=== PATIENT | female | born 1990 | race Caucasian/White ===

== ENCOUNTER → 2022-06-04 11:43 | Outpatient (BNVA) | payer BC, SELFPAY | PROVIDERS: Visit Provider Nurse Practitioner Family | DX: J02.9 Acute pharyngitis, unspecified (principal) | CPT/HCPCS: 87071; 87880 ==

== ENCOUNTER → 2022-07-29 10:51 | Outpatient (BNVA) | payer BC, SELFPAY | PROVIDERS: PCP Nurse Practitioner Family; Visit Provider Nurse Practitioner Family | DX: S99.912A Unspecified injury of left ankle, initial encounter (principal); X58.XXXA Exposure to other specified factors, initial encounter | CPT/HCPCS: 73610 ==

== ENCOUNTER 2022-10-08 10:08 | Emergency (ER) | payer BC, SELFPAY ==
[2022-10-08 10:14] VITALS: PULSE 76; RESP 16; TEMP 36.4; O2SAT 92; BMI 34.0
[2022-10-08 10:31] VITALS: RESP 14
--- NOTE | 2022-10-08 10:41 | US_ITS ---
WS: [id number] ULTRASOUND RIGHT BREAST HISTORY: nipple discharge and painful lumps COMPARISON: None available. TECHNIQUE: 2-D and Doppler. Ultrasound is directed to the anterior RIGHT breast in the area of pain. There are mildly dilated gentry ts with a small amount of debris in the anterior breast. There is no focal mass or abscess identified . US/US breast RT limited* [id number] IMPRESSION: BI-RADS: 2-Benign FOLLOW-UP: See Report No breast abscess or mass. Dilated ducts with ectasia posterior to the nipple. No additional imaging neces kurt. If pain persists or there are progressive changes to suggest developing m astitis or abscess additional ultrasound may be helpful.
[2022-10-08 11:05] LABS: Basophils # 0.1 10^3/uL (0.0-0.1); Basophils % 0.8 %; Eosinophils # 0.1 10^3/uL (0.0-0.8); Eosinophils % 1.4 %; Hematocrit 43.2 % (37.0-47.0); Hemoglobin 13.6 g/dL (11.5-15.3); Lymphocytes # 1.8 10^3/uL (0.8-4.8); Lymphocytes % 27.7 %; Mean Corpuscular HGB Conc 31.5 g/dL (30.0-36.0); Mean Corpuscular Hemoglobin 27.5 pg (28.0-34.0); Mean Corpuscular Volume 87.3 fl (81-99); Mean Platelet Volume 11.5 fL (7.4-10.4); Monocytes # 0.3 10^3/uL (0.2-0.9); Monocytes % 4.7 %; Neutrophils # 4.16 10^3/uL (1.8-7.7); Neutrophils % 65.1 %; Nucleated Red Blood Cells % 0 %; Platelet Count 214 10^3/cmm (130-400); Red Blood Count 4.95 10^6/uL (4.1-5.3); Red Cell Distribution Width 13.2 % (12.1-15.1); White Blood Count 6.4 10^3/uL (4.0-10.0)
[2022-10-08 11:21] LABS: Alanine Aminotransferase 16 U/L (0-33); Alkaline Phosphatase 56 U/L (35-105); Anion Gap 13.1 (5-19); Aspartate Amino Transferase 14 U/L (0-32); Blood Urea Nitrogen 14 mg/dL (6-20); Calcium 9.2 mg/dL (8.5-10.5); Carbon Dioxide 25 mmol/L (22-29); Chloride 104 mmol/L (98-107); Globulin 2.8 g/dL (1.3-4.6); Glucose 92 mg/dL (65-115); Osmolality Calculated 286 mOsm/kg (285-295); Potassium 4.1 mmol/L (3.5-5.1); Sodium 138 mmol/L (136-145); Total Bilirubin 0.3 mg/dL (0.15-1.2); Total Protein 6.8 g/dL (6.6-8.7)
[2022-10-08 11:33] VITALS: RESP 14; O2SAT 97
[2022-10-08] MEDS: morphine 4 mg/mL SDV 1 mL 2 MG IVP (11:33)
[2022-10-08] MEDS: ondansetron 2 mg/ML SDV 2 mL 4 MG IVP (11:33)
--- NOTE | 2022-10-08 11:56 | W.ED.GENADLT ---
Documented by User: SUZETTE Ram 10/10/22 07:14 HPI - General Adult General: Chief complaint: General Medical Stated complaint: poss absess in breast Time Seen by Provider: 10/08/22 10:11 History of Present Illness: Patient is in today for right-sided breast pain. She reports that she has actually been lactating bilateral nipples x4 years since stopping feeding her baby. She reports it is not all the time but almost always she can express milk or a whitish creamy substance from both of her nipples manually. She states that approximately 8 to 10 days ago she started having pain on the right breast around the nipple. She states that she did go to her primary care provider and they are setting her up with a referral to [facility]. They also started her on an antibiotic medication. She reports that she has 2 days left of the antibiotic and she is not feeling any better. She states, actually, she has slightly worse pain. She denies any fever or chills. She denies any possibility of stating that she is currently on her menstrual cycle x3 days. Associated symptoms: Deny chest pain, dyspnea, headache(s), nausea, palpitations, syncope or vomiting Review of Systems Const: Denies: fever(s), chills or body aches Eyes: Denies: change in vision or blurry vision ENMT: Denies: throat pain Card: Denies: chest pain, palpitations, irregular heart rhythm, lightheadedness or syncope Resp: Denies: dyspnea, productive cough or non-productive cough GI: Denies: abdominal pain, nausea or vomiting : Denies: flank pain, difficulty voiding, dysuria, urinary frequency, urinary urgency or urinary hesitancy Musc: Denies: neck pain or back pain Skin/Breast: Reports: breast tenderness, breast pain and nipple discharge Neuro: Denies: headache(s), numbness in extremities or weakness in extremities PFSH ED PFSH: Family History Grandmother CAD (coronary artery disease) Diabetes Mother Hyperlipidemia Hypertension Grandfather Cancer colon Social History Smoking and tobacco status: current every day smoker (vape) Female Reproductive History: Spontaneous abortions: No Physical Exam Const: COMMON NORMALS: no acute distress, patient oriented x3 and alert GENERAL APPEARANCE: cooperative ORIENTATION/CONSCIOUSNESS: Yes awake, Yes oriented to person, Yes oriented to place and Yes oriented to time Eye: COMMON NORMALS: Equal, round and reactive pupils present, EOMs intact bilaterally and conjunctivae normal GENERAL EYE: appearance normal, both eyes and all related structures ALIGNMENT: Yes alignment normal CONJUNCTIVA: Yes conjunctivae normal SCLERA: sclerae normal PUPIL: Yes Equal, round and reactive pupils present Neck/C-Spine: COMMON NORMALS: full ROM Chest: OTHER: Patient is able to manually express a small amount of serous colored drainage bilateral nipples. Patient has tenderness to palpation surrounding the areola on the right breast. There is a small BB sized movable firm lump palpated approximately 8:00 on the right breast. There is tenderness to palpation surrounding the areola worse in the 6 o'clock position. No erythema or skin discolorations appreciated. Resp: COMMON NORMALS: normal respiratory effort, No retractions, No use of accessory muscles and clear to auscultation bilaterally EFFORT & INSPECTION: Yes symmetric chest movement AUSCULTATION: clear to auscultation bilaterally Cardio: COMMON NORMALS: regular rate, regular rhythm, S1 normal heart sound present and S2 normal heart sound present RATE: regular rate RHYTHM: regular rhythm HEART SOUNDS: S1 normal heart sound present and S2 normal heart sound present GI: COMMON NORMALS: Normal to inspection, nondistended, normoactive bowel sounds present, Soft to palpation, non-tender, No hepatosplenomegaly present, no masses and no bruits INSPECTION: Yes normal to inspection PALPATION: Yes Soft to palpation and Yes No hepatosplenomegaly present : COMMON NORMALS: Yes no CVA tenderness BLADDER/KIDNEY EXAM: Yes no CVA tenderness Back/Pelvis: COMMON NORMALS: no CVA tenderness Neuro: COMMON NORMALS: patient oriented x3 SENSORIUM/ORIENTATION: Yes alert, Yes oriented to person, Yes oriented to place and Yes oriented to time Psych: COMMON NORMALS: cooperative Course Vital Signs: Vital signs: Vital Signs Temperature 97.6 F 10/08/22 10:14 Pulse Rate 76 10/08/22 10:14 Respiratory Rate 14 10/08/22 11:33 Pulse Oximetry 97 10/08/22 11:33 Oxygen Delivery Fl thod 10/08/22 10:[address] [facility] - General Adult Medical Decision Making Patient is in today for right-sided breast pain. This has been ongoing for approximately 10 days and she has been on antibiotics for approximately 8 days. Patient reports the pain might be slightly getting worse. She also has another issue in which she has been having nipple discharge since she stopped breast-feeding 4 years ago. Patient reports that she is always able to express some out manually from both breasts. She is awaiting an appointment with [facility]. Labs unremarkable. Ultrasound breast does not show any breast abscess or mass. It shows dilated ducts with ectasia posterior to the nipple no additional imaging necessary unless pain persists or changes or progressive. I recommend patient to stay on antibiotic medication. There is no evidence of abscess or mass at this time. Continue follow-up with primary care provider. Follow-up with [facility] as scheduled. Return to the ER for new or worsening symptoms. Lab Data 10/08/22 10:56 10/08/22 10:56 Radiology Impressions Breast Ultrasound 10/08/22 10:41 IMPRESSION: BI-RADS: 2-Benign FOLLOW-UP: See Report No breast abscess or mass. Dilated ducts with ectasia posterior to the nipple. No additional imaging necessary. If pain persists or there are progressive changes to suggest developing mastitis or abscess additional ultrasound may be helpful. Laboratory Results WBC 6.4 10^3/uL (4.0-10.0) 10/08/22 10:56 RBC 4.95 10^6/uL (4.1-5.3) 10/08/22 10:56 Hgb 13.6 g/dL (11.5-15.3) 10/08/22 10:56 Hct 43.2 % (37.0-47.0) 10/08/22 10:56 MCV 87.3 fl (81-99) 10/08/22 10:56 MCH 27.5 pg (28.0-34.0) L 10/08/22 10:56 MCHC 31.5 g/dL (30.0-36.0) 10/08/22 10:56 RDW 13.2 % (12.1-15.1) 10/08/22 10:56 Plt Count 214 10^3/cmm (130-400) 10/08/22 10:56 MPV 11.5 fL (7.4-10.4) H 10/08/22 10:56 Neut % (Auto) 65.1 % 10/08/22 10:56 Lymph % (Auto) 27.7 % 10/08/22 10:56 Valley % (Auto) 4.7 % 10/08/22 10:56 Eos % (Auto) 1.4 % 10/08/22 10:56 Baso % (Auto) 0.8 % 10/08/22 10:56 Neut # (Auto) 4.16 10^3/uL (1.8-7.7) 10/08/22 10:56 Lymph # (Auto) 1.8 10^3/uL (0.8-4.8) 10/08/22 10:56 Valley # (Auto) 0.3 10^3/uL (0.2-0.9) 10/08/22 10:56 Eos # (Auto) 0.1 10^3/uL (0.0-0.8) 10/08/22 10:56 Baso # (Auto) 0.1 10^3/uL (0.0-0.1) 10/08/22 10:56 Nucleated RBC % (auto) 0 % 10/08/22 10:56 Nucleated RBCs # 0.0 /100WBC 10/08/22 10:56 Sodium 138 mmol/L (136-145) 10/08/22 10:56 Potassium 4.1 mmol/L (3.5-5.1) 10/08/22 10:56 Chloride 104 mmol/L (98-107) 10/08/22 10:56 Carbon Dioxide 25 mmol/L (22-29) 10/08/22 10:56 Anion Gap 13.1 (5-19) 10/08/22 10:56 BUN 14 mg/dL (6-20) 10/08/22 10:56 Creatinine 0.9 mg/dL (0.5-0.9) 10/08/22 10:56 GFR Calculation 73.0 mL/min (90-130) L 10/08/22 10:56 Glucose 92 mg/dL (65-115) 10/08/22 10:56 Calculated Osmolality 286 mOsm/kg (285-295) 10/08/22 10:56 Calcium 9.2 mg/dL (8.5-10.5) 10/08/22 10:56 Total Bilirubin 0.3 mg/dL (0.15-1.2) 10/08/22 10:56 AST 14 U/L (0-32) 10/08/22 10:56 ALT 16 U/L (0-33) 10/08/22 10:56 Alkaline Phosphatase 56 U/L (35-105) 10/08/22 10:56 Total Protein 6.8 g/dL (6.6-8.7) 10/08/22 10:56 Albumin 4.0 g/dL (3.5-5.2) 10/08/22 10:56 Globulin 2.8 g/dL (1.3-4.6) 10/08/22 10:56 Discharge Plan Discharge Patient Disposition: Home Clinical Impression: Breast pain, right, Bilateral nipple discharge Condition: Stable Prescriptions: No Action omeprazole 20 mg capsule,delayed release(DR/EC) 40 mg PO DAILY Qty: 90 3RF amoxicillin-pot clavulanate 875-125 mg tablet 1 tab PO BID 10 Days Qty: 20 0RF Discharge Orders: Discharge ED (Routine); Ordered 10/08/22 Ordered By: Taylor Harris Referrals: Winifred Tracy NP [Primary Care Provider] - Discharge Diet: Usual diet Discharge Activity: Resume usual activity Patient Instructions: Breast Pain Activity Restrictions/Additional Instructions: Your labs did not show evidence of a major bacterial infection, mass, or abscess. I recommend continued follow-up with primary care provider and [facility]. I recommend the use of nonsteroidal anti-inflammatory medications at home to help with discomfort. You may also use warm compresses to the breast. Return to the ER as needed for any new or worsening symptoms including, but not limited to, development of fever, worsening breast pain, change in nipple discharge characteristics. Coding Level of Care Code ED Hide Or Skin Buffer for Chg Fwd Documented by User: Amadeo Kent DO 10/10/22 07:19 HPI - General Adult General: Chief complaint: General Medical Stated complaint: poss absess in breast Time Seen by Provider: 10/08/22 10:11 PFSH ED PFSH: Family History Grandmother CAD (coronary artery disease) Diabetes Mother Hyperlipidemia Hypertension Grandfather Cancer colon Social History Smoking and tobacco status: current every day smoker (vape) Course Vital Signs: Vital signs: Vital Signs Temperature 97.6 F 10/08/22 10:14 Pulse Rate 76 10/08/22 10:14 Respiratory Rate 14 10/08/22 11:33 Pulse Oximetry 97 10/08/22 11:33 Oxygen Delivery Me thod 10/08/22 10:14 MDM - General Adult Medical Decision Making Patient is in today for right-sided breast pain. This has been ongoing for approximately 10 days and she has been on antibiotics for approximately 8 days. Patient reports the pain might be slightly getting worse. She also has another issue in which she has been having nipple discharge since she stopped breast-feeding 4 years ago. Patient reports that she is always able to express some out manually from both breasts. She is awaiting an appointment with [facility]. Labs unremarkable. Ultrasound breast does not show any breast abscess or mass. It shows dilated ducts with ectasia posterior to the nipple no additional imaging necessary unless pain persists or changes or progressive. I recommend patient to stay on antibiotic medication. There is no evidence of abscess or mass at this time. Continue follow-up with primary care provider. Follow-up with [facility] as scheduled. Return to the ER for new or worsening symptoms. Chart reviewed and patient discussed with midlevel. Agree with assessment and plan. Lab Data 10/08/22 10:56 10/08/22 10:56 Radiology Impressions Breast Ultrasound 10/08/22 10:41 IMPRESSION: BI-RADS: 2-Benign FOLLOW-UP: See Report No breast abscess or mass. Dilated ducts with ectasia posterior to the nipple. No additional imaging necessary. If pain persists or there are progressive changes to suggest developing mastitis or abscess additional ultrasound may be helpful. Laboratory Results WBC 6.4 10^3/uL (4.0-10.0) 10/08/22 10:56 RBC 4.95 10^6/uL (4.1-5.3) 10/08/22 10:56 Hgb 13.6 g/dL (11.5-15.3) 10/08/22 10:56 Hct 43.2 % (37.0-47.0) 10/08/22 10:56 MCV 87.3 fl (81-99) 10/08/22 10:56 MCH 27.5 pg (28.0-34.0) L 10/08/22 10:56 MCHC 31.5 g/dL (30.0-36.0) 10/08/22 10:56 RDW 13.2 % (12.1-15.1) 10/08/22 10:56 Plt Count 214 10^3/cmm (130-400) 10/08/22 10:56 MPV 11.5 fL (7.4-10.4) H 10/08/22 10:56 Neut % (Auto) 65.1 % 10/08/22 10:56 Lymph % (Auto) 27.7 % 10/08/22 10:56 Valley % (Auto) 4.7 % 10/08/22 10:56 Eos % (Auto) 1.4 % 10/08/22 10:56 Baso % (Auto) 0.8 % 10/08/22 10:56 Neut # (Auto) 4.16 10^3/uL (1.8-7.7) 10/08/22 10:56 Lymph # (Auto) 1.8 10^3/uL (0.8-4.8) 10/08/22 10:56 Valley # (Auto) 0.3 10^3/uL (0.2-0.9) 10/08/22 10:56 Eos # (Auto) 0.1 10^3/uL (0.0-0.8) 10/08/22 10:56 Baso # (Auto) 0.1 10^3/uL (0.0-0.1) 10/08/22 10:56 Nucleated RBC % (auto) 0 % 10/08/22 10:56 Nucleated RBCs # 0.0 /100WBC 10/08/22 10:56 Sodium 138 mmol/L (136-145) 10/08/22 10:56 Potassium 4.1 mmol/L (3.5-5.1) 10/08/22 10:56 Chloride 104 mmol/L (98-107) 10/08/22 10:56 Carbon Dioxide 25 mmol/L (22-29) 10/08/22 10:56 Anion Gap 13.1 (5-19) 10/08/22 10:56 BUN 14 mg/dL (6-20) 10/08/22 10:56 Creatinine 0.9 mg/dL (0.5-0.9) 10/08/22 10:56 GFR Calculation 73.0 mL/min (90-130) L 10/08/22 10:56 Glucose 92 mg/dL (65-115) 10/08/22 10:56 Calculated Osmolality 286 mOsm/kg (285-295) 10/08/22 10:56 Calcium 9.2 mg/dL (8.5-10.5) 10/08/22 10:56 Total Bilirubin 0.3 mg/dL (0.15-1.2) 10/08/22 10:56 AST 14 U/L (0-32) 10/08/22 10:56 ALT 16 U/L (0-33) 10/08/22 10:56 Alkaline Phosphatase 56 U/L (35-105) 10/08/22 10:56 Total Protein 6.8 g/dL (6.6-8.7) 10/08/22 10:56 Albumin 4.0 g/dL (3.5-5.2) 10/08/22 10:56 Globulin 2.8 g/dL (1.3-4.6) 10/08/22 10:56 Discharge Plan Discharge Patient Disposition: Home Clinical Impression: Breast pain, right, Bilateral nipple discharge Condition: Stable Prescriptions: No Action omeprazole 20 mg capsule,delayed release(DR/EC) 40 mg PO DAILY Qty: 90 3RF amoxicillin-pot clavulanate 875-125 mg tablet 1 tab PO BID 10 Days Qty: 20 0RF Discharge Orders: Discharge ED (Routine); Ordered 10/08/22 Ordered By: Taylor Harris Referrals: Winifred Tracy NP [Primary Care Provider] - Discharge Diet: Usual diet Discharge Activity: Resume usual activity Patient Instructions: Breast Pain Activity Restrictions/Additional Instructions: Your labs did not show evidence of a major bacterial infection, mass, or abscess. I recommend continued follow-up with primary care provider and [facility]. I recommend the use of nonsteroidal anti-inflammatory medications at home to help with discomfort. You may also use warm compresses to the breast. Return to the ER as needed for any new or worsening symptoms including, but not limited to, development of fever, worsening breast pain, change in nipple discharge characteristics. Coding Level of Care Code ED Hide Or Skin Buffer for Sana Abel
--- NOTE | 2022-10-09 13:35 | DCPLANNER ---
Addendum entered by Teresa Stephenson 11/20/22 14:53: Patient had a follow up appointment scheduled with [facility] - patient did attend appointment Addendum entered by Teresa Stephenson 10/10/22 07:50: Patient has a follow up appointment scheduled for Friday, November 18, 2022 at 8:[address] Antoine at [facility]. Clinic will call patient with appointment information. Original Note: sr. payroll manager had message to schedule a follow up appointment for patient with [facility]. Patient has an appointment, the ER physician wanted to see if appointment can be moved up any sooner. sr. payroll manager sent patients information to the front office staff at [facility]. Patients information will be printed and reviewed. Clinic will call patient with appointment information.
== END 2022-10-08 12:35 | disposition home or self-care (01) ==
PROVIDERS: Emergency Provider Nurse Practitioner Family; PCP Nurse Practitioner Family
DX: N64.4 Mastodynia (principal); N64.52 Nipple discharge; F17.290 Nicotine dependence, other tobacco product, uncomplicated
CPT/HCPCS: 36415; 76642; 80053; 85025; 96374; 96375; 99285; J2270; J2405

== ENCOUNTER → 2022-11-18 09:00 | Outpatient (BNVA) | payer BC, SELFPAY | PROVIDERS: PCP Nurse Practitioner Family; Referring Provider Emergency Medicine; Visit Provider Obstetrics & Gynecology | DX: N64.3 Galactorrhea not associated with childbirth (principal) | CPT/HCPCS: 84146; 84443 ==

== ENCOUNTER 2023-04-25 05:51 | Day surgery (SDC) | payer BC, SELFPAY ==
[2023-04-24 11:39] VITALS: BMI 29.2
[2023-04-25] VITALS (7 sets, daily range): BP systolic 101–131; BP diastolic 57–77; PULSE 50–67; RESP 15–18; TEMP 35.6–36.3; O2SAT 96–100
--- NOTE | 2023-04-25 | XR_ITS ---
WS: [id number] Right foot, C-arm fluoroscopy views, 04/25/2023 Clinical Data: hammer toe correction Comparison: None. Findings: Dr. Ding performed hammertoe correction of the right fourth and fifth toes. Impression: Hammertoe correction of the right fourth and fifth toes.
--- NOTE | 2023-04-25 06:16 | W.PM.OPSUD ---
Surgery/Procedure H&P Update DATE OF PROCEDURE: April 25, 2023 DATE H&P PERFORMED: 04/07/23 H&P UPDATE INFORMATION: I have reviewed H&P completed within last 30 days, I have examined patient prior to procedure, No changes to prior documentation and H&P is in [facility] [place] on date indicated PREOP DIAGNOSIS: Right fourth and fifth hammertoe. PLANNED PROCEDURE: Operation Date: 04/25/23 07:00 Proposed Procedures p Right fourth hammertoe correction with tendon transfer,?Right fifth hammertoe correction [id number], [id number] and [id number],M20.41.m20.42,m79.671,m79.672(Right) - Satish Ding DPM s Tendon Transfer Foot(Right) - Satish Ding DPM
--- NOTE | 2023-04-25 06:17 | P.OP_ITS ---
Operative Report Date of procedure: April 25, 2023 Pre-op diagnosis: Right fourth and fifth hammertoe deformities. Post-op diagnosis: Right fourth and fifth hammertoe deformities Procedure done: 1.? Right fourth hammertoe correction with flexor digitorum longus tendon transfer.? CPT code 36659 and 87953 2.? Right fifth hammertoe correction.? CPT code 85855 Implants: 0.062 K wire x2, 3-0 Vicryl, 4-0 nylon Specimens removed/disposition: None Pathology: None Surgeon: Satish Ding DPM Admitting Coordinator: See intraoperative documentation Estimated blood loss: 5 See intraoperative documentation IV fluids: 0 Urine output: 0 Complications: None Brief History: 32 year old female patient presenting to clinic for a surgical consult.? Patient is wanting to start with right foot first. Patient has re-ocurring heloma molle at the fourth webspace bilaterally.? Patient reports that the callus are very painful and she is looking for a surgical procedure in fixing the re-ocurring callus.? She has been utilizing hydrocolloid bandages, spacing and padding, wide accommodative shoes and anti-inflammatories continues to have pain daily and would like to proceed with surgical intervention as this affects her overall quality of life.? She would like to start with her right foot.? Recommended derotational arthroplasty with hammertoe correction of right fourth and fifth toes.? Expected 6 weeks of off work and potentially longer pending her postoperative recovery.? I reviewed at length with the patient, the risks, potential complications, benefits, alternatives, expectations, and typical outcomes associated with the surgery. The risks and potential complications were explained in detail, including but not limited to infection, wound dehiscence or soft tissue complications, bleeding and hematoma, chronic edema, neuritis or nerve damage producing numbness or chronic pain, CRPS, failure to relieve pain or worsening pain, thick / painful / unsightly scar, limited motion / stiffness, malposition, delayed union, malunion, or nonunion, fracture, reaction to implants, anesthetic complications, venous thromboembolism, and deformity recurrence.? I discussed the notion of no regrets with the patient as it pertains to complications and outcomes. The patient seemed to understand the nature of the proposed care and required convalescence. They asked appropriate questions, answered to their satisfaction. They are aware no guarantees can be made as to a satisfactory outcome and they understand there may be other possible unforeseen complications or outcomes not listed here that will be treated accordingly if they arise. There were no written or implied guarantees given to the patient. Procedure: Under mild sedation the patient was brought to the operating room and placed onto the operating table in supine position. A timeout was performed. Anesthesia was then administered by the anesthesia service. Local anesthesia was injected by myself consisting of 0.5% Marcaine plain total of 20 cc in a right fourth and fifth ray block fashion as well as 10 cc of Exparel subcutaneously in a grid like fashion proximal to the operative site at the right foot. Well-padded pneumatic tourniquet was applied to the right ankle. The right lower extremity was scrubbed, prepped and draped utilizing normal aseptic technique. Right foot was exanguinated with a Esmarch bandage and tourniquet inflated to 250 mmHg. Attention was directed to the dorsal aspect of the right fourth toe where a dominantly sagittal plane contracture was appreciated in a flexion at the proximal interphalangeal joint being the apex of the deformity. A 15 blade was utilized to perform an incision directly over the proximal interphalangeal joint through skin with dissection carried down to the extensor tendon which was transected and tagged and retracted proximally. The head of the proximal phalanx and base of the intermediate phalanx of the right fourth toe were transected and passed from operative field followed by irrigation. Flexor te ndon was identified within the space and split longitudinally and and 2 and flexor tendon transfer was achieved at the proximal phalanx to correct the sagittal plane deformity utilizing a flexor tendon transfer this was secured with 4-0 Vicryl. The flexor tendon after having been split longitudinally was transferred to the medial lateral aspect of the left fourth toe and brought back together into and as above with Vicryl. With improved more neutral position of the proximal phalanx achieved after tendon transfer. The incision was irrigated with saline solution. A point 062 K wire was then integrated at the base of the intermediate phalanx through the distal right fourth toe and then retrograded into the proximal phalanx with the right fourth toe held in rectus position. The end was trimmed and Ramez ball was applied. The incision was irrigated with saline solution. Extensor tendon and deep tissue reapproximated with 4-0 Vicryl. Skin closed with 4-0 nylon. Attention was then directed to the right fifth toe where a oblique skin bridge was excised assisting with soft tissue closure to derotate the fifth toe. The head of the proximal phalanx and base of the intermediate phalanx were transected and passed from operative field. Extensor tendon was transected and retracted proximally. Incision was irrigated with saline solution and a 0.062 K wire was integrated at the right fifth toe starting at the base of the intermediate phalanx and then retrograded into the right fifth proximal phalanx held in neutral position in all 3 planes. The K wire was bent at 90 degrees and trimmed followed by covering with a Ramez ball. The right fifth toe was irrigated and closed in a layered fashion. Extensor tendon reapproximated utilizing 4-0 Vicryl. Skin with 4-0 nylon. Improved position of the right fourth and fifth toes appreciated intraoperatively both with static and simulated weightbearing while loading the forefoot. Incisions were dressed with Adaptic, sterile 4 x 4's, Kerlix and Joshua wrap followed by application of a cam boot to the right lower extremity. Tourniquet was then deflated and a prompt hyperemic response was noted to the distal digits of the right foot. Patient tolerated the procedure and anesthesia well and was transferred to the PACU with vital signs stable and vascular status intact. Following a period of postoperative monitoring she will be discharged home may be weightbearing as tolerated with a cam boot at all times. Is to rest and elevate her right foot and overall decrease her activities. Was given at home care instructions as well as scheduled follow-up.
--- NOTE | 2023-04-25 06:42 | ANES.PREANE2 ---
Pre-Anesthetic Assessment Height/Weight: Height 1.63 m Weight 77.111 kg Temp Pulse Resp BP Pulse Ox O2 Del Method 97.1 F L 67 16 131/75 99 Room Air 04/25/23 06:08 04/25/23 06:08 04/25/23 06:08 04/25/23 06:08 04/25/23 06:08 04/25/23 06:23 Preop Diagnosis: Right fourth and fifth hammertoe. Operation Date: 04/25/23 07:00 Proposed Procedures p Right fourth hammertoe correction with tendon transfer,?Right fifth hammertoe correction 77895, 16794 and 48545,M20.41.m20.42,m79.671,m79.672(Right) - Satish Ding DPM s Tendon Transfer Foot(Right) - Satish Ding DPM Familial anesthetic complications: none Was Beta Diamond taken within 24 hours: N/A Was Clonidine taken within 24 hours: N/A Last intake: Intake Last Liquid Date 04/24/23 Last Liquid Time 22:30 Last Solid Date 04/24/23 Last Solid Time 22:30 Social No alcohol and No tobacco vapes Exam alert, oriented x 3, clear to auscultation bilaterally and regular rate & rhythm Airway Mallampati: Class I Dentition: full GI Gastroesophageal Reflux Disease Anesthetic Plan ASA status: 2 Anesthesia: MAC Risk of > 500 ml blood loss (7ml/kg in children): No Medications/Allergies Home Medications Medication Instructions Recorded Confirmed Last Taken Type hydrocodone 10 mg-acetaminophen 1 tab PO Q6H PRN pain 7 days #28 04/25/23 Unknown Rx 325 mg tablet tabs Allergies Allergy/AdvReac Type Severity Reaction Status Date / Time phenol Allergy ALGY-Anaphy Verified 04/24/23 11:33 laxis steroids Allergy Unknown swelling Uncoded 04/24/23 11:33 [facility] Anesthesia Family History Grandmother CAD (coronary artery disease) Diabetes Mother Hyperlipidemia Hypertension Grandfather Colon cancer Denies family history of Ovarian cancer Hypercholesteremia Breast cancer Uterine cancer Thyroid disease Stroke Female Reproductive History Spontaneous abortions: No Data Anesthesia Cardiac Studies: No Data to Display
[2023-04-25] MEDS: sodium chloride 0.9% 1,000 ML 30 ML IV (06:46)
[2023-04-25 06:54] LABS: OR HCG Qualitative Urine Negative (Negative)
[2023-04-25] MEDS: ceFAZolin 2,000 MG in sodium chloride 0.9% (plus) 50 ML 100 MG IV (06:59)
[2023-04-25] MEDS: BUPivacaine liposome 13.3 mg/mL SDV 10 mL 133 MG INFILTRATI (07:24)
[2023-04-25] MEDS: BUPivacaine 0.5% INJ 10 mL INJECTION ×2 (07:25)
--- NOTE | 2023-04-25 07:47 | PM.OP ---
Operative Report Date of procedure: April 25, 2023 Pre-op diagnosis: Right fourth and fifth hammertoe deformities. Post-op diagnosis: Right fourth and fifth hammertoe deformities. Post-op findings: Right fourth and fifth hammertoe deformities. Procedure done: 1. Right fourth hammertoe correction with flexor digitorum longus tendon transfer. CPT code 44737 and 72321 2. Right fifth hammertoe correction. CPT code 09046 Implants: 0.062 K wire x2, 4-0 Vicryl, 4-0 nylon Specimens removed/disposition: None Pathology: None Surgeon: Satish Ding DPM Website Admin: Yasmani Le Estimated blood loss: 2 33 IV fluids: 0 Urine output: 0 Complications: None Brief History: 32 year old female patient presenting to clinic for a surgical consult.? Patient is wanting to start with right foot first. Patient has re-ocurring heloma molle at the fourth webspace bilaterally.? Patient reports that the callus are very painful and she is looking for a surgical procedure in fixing the re-ocurring callus.? She has been utilizing hydrocolloid bandages, spacing and padding, wide accommodative shoes and anti-inflammatories continues to have pain daily and would like to proceed with surgical intervention as this affects her overall quality of life.? She would like to start with her right foot.? Recommended derotational arthroplasty with hammertoe correction of right fourth and fifth toes.? Expected 6 weeks of off work and potentially longer pending her postoperative recovery.? I reviewed at length with the patient, the risks, potential complications, benefits, alternatives, expectations, and typical outcomes associated with the surgery. The risks and potential complications were explained in detail, including but not limited to infection, wound dehiscence or soft tissue complications, bleeding and hematoma, chronic edema, neuritis or nerve damage producing numbness or chronic pain, CRPS, failure to relieve pain or worsening pain, thick / painful / unsightly scar, limited motion / stiffness, malposition, delayed union, malunion, or nonunion, fracture, reaction to implants, anesthetic complications, venous thromboembolism, and deformity recurrence.? I discussed the notion of no regrets with the patient as it pertains to complications and outcomes. The patient seemed to understand the nature of the proposed care and required convalescence. They asked appropriate questions, answered to their satisfaction. They are aware no guarantees can be made as to a satisfactory outcome and they understand there may be other possible unforeseen complications or outcomes not listed here that will be treated accordingly if they arise. There were no written or implied guarantees given to the patient. Procedure: Under mild sedation the patient was brought to the operating room and placed onto the operating table in supine position. A timeout was performed. Anesthesia was then administered by the anesthesia service. Local anesthesia was injected by myself consisting of 20 cc of 0.5 sent Marcaine plain in a fourth and fifth ray block fashion to the right foot followed by 10 cc of Exparel infiltrated subcutaneously in a grid like fashion to the dorsal and plantar aspect of the right lateral forefoot. Well-padded pneumatic tourniquet applied to the right high calf. The right lower extremity was then scrubbed, prepped and draped utilizing normal aseptic technique. Right foot was exanguinated with an Esmarch bandage and the tourniquet inflated to 250 mmHg. Attention was directed to the right fourth hammertoe contracture noted to be contracted in the sagittal plane and deviated medially in the transverse plane. 2 semielliptical converging incisions were performed directly over the proximal interphalangeal joint with a skin bridge excised and passed from operative field. The extensor tendon was transected at the level of the proximal phalangeal joint and the head of the proximal phalanx and base of the intermediate phalanx were denuded of articular surface and prepped for arthrodesis followed by saline flush. The flexor digitorum longus tendon was split longitudinally and wrapped medially and laterally as a flexor tendon transfer to maintain neutral position in the sagittal plane, and and was reapproximated utilizing 4-0 Vicryl. The incision was further irrigated with saline solution and arthrodesis of the hammertoe at the proximal signs of joint was achieved with K wire starting at the base of the intermediate phalanx and integrated out the distal tuft of the toe within the medullary canal of the intermediate and distal phalanx centrally and retrograded back into the proximal phalanx crossing the metatarsal phalangeal joint for additional stability during recovery. K wire was bent at 90 degrees dorsally, trimmed and covered with a Ramez ball. Incision was irrigated and closed with reapproximation of the deep tissues including extensor tendon and subcutaneous tissue with 4-0 Vicryl and skin with 4-0 nylon. Attention was then directed to the dorsal aspect of the right fifth toe noted to have a triplane component hammertoe contracture, oblique incision was performed with a wider gap medially to derotate the toe and oriented the nailbed at 12:00 incision was made through skin with skin bridge excised at the dorsal aspect of the proximal interphalangeal joint in oblique fashion oriented from proximal lateral to distal medial. Extensor tendon was transected laterally and the head of the proximal phalanx and base of the intermediate phalanx were denuded of articular surface, the head of the proximal phalanx was transected and passed from operative field. Irrigation was performed followed by fixation with K wire with fifth toe held in neutral position in all 3 planes. Did not cross the metatarsal phalangeal joint and this was confirmed with intraoperative fluoroscopy. The incision was irrigated with copious amounts of Staticin solution and extensor tendon and subcutaneous tissue reapproximated with 4-0 Vicryl and skin with 4-0 nylon. Both fourth and fifth toe were in anatomic position and in neutral position in all 3 planes visually inspected and confirmed on C-arm with AP, oblique and lateral view. Ramez ball applied, Adaptic, sterile Forbis, Kerlix and Joshua wrap followed by cam boot and tourniquet was then deflated, prompt hyperemic response was noted to the distal digits of the right foot. Patient tolerated the procedure and anesthesia well transferred to the PACU with vital signs stable vascular status intact. Following a period of postoperative monitoring be discharged home, is to be protected weightbearing with cam boot and rest and elevate. We will follow-up in podiatry clinic next week or sooner should she experience any complications.
--- NOTE | 2023-04-25 08:40 | ANE.PACU2 ---
Inpatient post-anesthesia follow up: Airway intact: Yes Vital signs: Temperature 97.3 F Pulse Rate 50 Respiratory Rate 18 Blood Pressure 114/72 Pulse Oximetry 100 Oxygen Delivery Me thod Room Air Oxygen Flow Rate Fraction of Inspir ed Oxygen Hydration adequate: Yes Nausea and vomiting: No Pain level: 1 Mental status: Baseline
== END 2023-04-25 08:43 | disposition home or self-care (01) ==
PROVIDERS: Anesthesiology; PCP Nurse Practitioner Family; Visit Provider Podiatrist Foot & Ankle Surgery
PROC: (CPT 28285; principal; 2023-04-25 07:00)
PROC: (CPT 27690; 2023-04-25 07:00)
DX: M20.41 Other hammer toe(s) (acquired), right foot (principal); K21.9 Gastro-esophageal reflux disease without esophagitis
CPT/HCPCS: 27690; 28285 ×2; 73620; 76000; 81025; 84703; C1713; C9290; J0690; J2704; J3010; J3490; J7030

== ENCOUNTER → 2023-05-13 13:54 | Outpatient (BNVA) | payer BC, SELFPAY | PROVIDERS: PCP Nurse Practitioner Family; Visit Provider Podiatrist Foot & Ankle Surgery | DX: Z98.890 Other specified postprocedural states (principal); M20.41 Other hammer toe(s) (acquired), right foot | CPT/HCPCS: 73630 ==

== ENCOUNTER 2023-05-13 14:47 | Outpatient (CLI) | payer BC, SELFPAY | END 2023-05-13 14:48 | disposition home or self-care (01) | LOC: SPT 14:48 | PROVIDERS: PCP Nurse Practitioner Family; Visit Provider Podiatrist Foot & Ankle Surgery | DX: Z47.89 Encounter for other orthopedic aftercare (principal) | CPT/HCPCS: 97760; L4361 ==

== ENCOUNTER → 2023-05-22 14:41 | Outpatient (BNVA) | payer BC, SELFPAY | PROVIDERS: PCP Nurse Practitioner Family; Visit Provider Podiatrist Foot & Ankle Surgery | DX: Z98.890 Other specified postprocedural states (principal); M20.41 Other hammer toe(s) (acquired), right foot | CPT/HCPCS: 73630 ==

== ENCOUNTER → 2023-06-05 13:19 | Outpatient (BNVA) | payer BC, SELFPAY | PROVIDERS: PCP Nurse Practitioner Family; Visit Provider Podiatrist Foot & Ankle Surgery | DX: Z98.890 Other specified postprocedural states (principal); M20.41 Other hammer toe(s) (acquired), right foot | CPT/HCPCS: 73630 ==

== ENCOUNTER → 2023-06-26 14:02 | Outpatient (BNVA) | payer BC, SELFPAY | PROVIDERS: PCP Nurse Practitioner Family; Visit Provider Podiatrist Foot & Ankle Surgery | DX: Z98.890 Other specified postprocedural states; M20.41 Other hammer toe(s) (acquired), right foot | CPT/HCPCS: 73630 ==

== ENCOUNTER 2023-09-29 15:14 | Outpatient (CLI) | payer BC, SELFPAY ==
--- NOTE | 2023-09-29 15:21 | XRR_ITS ---
PROCEDURE INFORMATION: Exam: XR Lumbosacral Spine Exam date and time: 09/29/2023 3:26 PM Age: 32 years old Clinical indication: Low back pain TECHNIQUE: Imaging protocol: Radiologic exam of the lumbosacral spine. Views: 6 or more views. Including flexion and extension views. COMPARISON: No relevant prior studies available. FINDINGS: Bones/joints: Very mild scoliosis convex to the left. Chronic bilateral L5 spondylolysis. No other fractures. Bilateral L5-S1 facet osteoarthritis. Normal L3-L4 alignment in flexion. 2-3 mm retrolisthesis of L3 on L4 in the neutral and extension positions. 10 mm anterolisthesis of L5 on S1 in flexion. This decreases to 7.5 mm in both neutral and extension positions. No other significant subluxations. Otherwise, unremarkable. Soft tissues: Unremarkable. XR/XR lumbar spine 6V w f/e [id number] IMPRESSION: As above.
== END 2023-09-29 15:15 | disposition home or self-care (01) ==
LOC: RAD 15:15
PROVIDERS: PCP Nurse Practitioner Family; Visit Provider Family Medicine
DX: M47.817 Spondylosis without myelopathy or radiculopathy, lumbosacral region (principal); M43.16 Spondylolisthesis, lumbar region; M54.50 Low back pain, unspecified
CPT/HCPCS: 72114

== ENCOUNTER 2024-10-25 10:10 | Outpatient (CLI) | payer BC, MEDICAID, SELFPAY ==
--- NOTE | 2024-10-25 10:19 | XRR_ITS ---
PROCEDURE INFORMATION: Exam: XR Lumbosacral Spine Exam date and time: 10/25/2024 10:27 AM Age: 34 years old Clinical indication: Pain and injury or trauma; Blunt trauma (contusions or hematomas); Injury date: 08/2023; Fall from step stool August 2023. Low back pain with nerve compression; Additional info: M43.17 - spondylolisthesis, lumbosacral region TECHNIQUE: Imaging protocol: Radiologic exam of the lumbosacral spine. Views: 2 or 3 views. COMPARISON: MR lumbar spine wo con* [id number] 10/24/2023 1:03 PM FINDINGS: Bones/joints: There is chronic grade 1 isthmic spondylolisthesis L5-S1 it appears to have progressed from prior study. There are superimposed degenerative changes L5-S1 with some disc space narrowing, endplate sclerosis and facet arthrosis.. There is some additional facet arthrosis within the mid-lower lumbar spine. Remaining disc heights are maintained. There are no compression fractures. Pedicles are intact. Soft tissues: Unremarkable. XR/XR lumbar spine 2-3V* [id number] IMPRESSION: Chronic grade 1 isthmic spondylolisthesis L5-S1 with secondary degenerative changes mildly progressed from prior study.
== END 2024-10-25 10:11 | disposition home or self-care (01) ==
PROVIDERS: PCP Orthopaedic Surgery; Visit Provider Nurse Practitioner
DX: M43.17 Spondylolisthesis, lumbosacral region (principal); M51.379 Other intervertebral disc degeneration, lumbosacral region without mention of lumbar back pain or lower extremity pain; M47.897 Other spondylosis, lumbosacral region; M47.896 Other spondylosis, lumbar region
CPT/HCPCS: 72100

== ENCOUNTER → 2024-11-04 08:59 | Outpatient (BNVA) | payer BC, MEDICAID, SELFPAY | PROVIDERS: PCP Orthopaedic Surgery; Visit Provider Orthopaedic Surgery | DX: M43.17 Spondylolisthesis, lumbosacral region (principal) | CPT/HCPCS: 72110; 80053; 81001; 85025 ==

== ENCOUNTER 2024-11-15 10:05 | Observation (INO) | payer BC, MEDICAID, SELFPAY ==
[2024-11-15] VITALS (31 sets, daily range): BP systolic 77–137; BP diastolic 43–89; PULSE 48–76; RESP 12–18; TEMP 36.1–36.9; O2SAT 94–100; BMI 38.0
[2024-11-15] MEDS: scopolamine 1 mg PATCH 1 PATCH TRANSDERMA (06:17)
[2024-11-15] MEDS: famotidine 20 mg/2 mL INJ IVP (06:17)
[2024-11-15] MEDS: sodium chloride 0.9% 1,000 ML 30 ML IV (06:18)
[2024-11-15 06:36] LABS: OR HCG Qualitative Urine Negative (Negative)
--- NOTE | 2024-11-15 06:38 | ANES.PREANE2 ---
Pre-Anesthetic Assessment Height/Weight: Height 1.63 m Weight 100.698 kg Temp Pulse Resp BP Pulse Ox O2 Del Method 97.6 F 60 16 136/89 96 Room Air 11/15/24 06:05 11/15/24 06:05 11/15/24 06:05 11/15/24 06:17 11/15/24 06:05 11/15/24 06:10 Preop Diagnosis: L5-S1 spondylolisthesis; lumbar stenosis with neurogenic claudication Operation Date: 11/15/24 07:00 Proposed Procedures p Posterior Lumbar Interbody Fusion PLIF(Not Applicable) - Alfonso Elise, Familial anesthetic complications: None Was Beta Diamond taken within 24 hours: N/A Was Clonidine taken within 24 hours: N/A Last intake: Intake Last Liquid Date 11/14/24 Last Liquid Time 23:00 Last Solid Date 11/14/24 Last Solid Time 23:00 Social No alcohol and No tobacco Vapes Exam alert, oriented x 3, clear to auscultation bilaterally and regular rate & rhythm Airway Mallampati: Class I Dentition: full GI Gastroesophageal Reflux Disease Anesthetic Plan ASA status: 2 Anesthesia: General Risk of > 500 ml blood loss (7ml/kg in children): No Medications/Allergies Home Medications ?Medication ?Instructions ?Recorded ?Confirmed ?Last Taken ?Type Cam boot to right #1 ea 05/13/23 11/10/24 Unknown Rx celecoxib 200 mg capsule (Celebrex) 200 mg PO BID #60 caps 10/25/24 11/11/24 11/10/24 Rx tizanidine 2 mg capsule 2 mg PO TID 10/25/24 11/11/24 11/08/24 History prednisone 20 mg tablet 20 mg PO DAILY #5 tabs 11/10/24 11/11/24 11/11/24 Rx Allergies Allergy/AdvReac Type Severity Reaction Status Date / Time phenol Allergy ALGY-Anaphy Verified 11/10/24 12:56 laxis steroids Allergy Unknown swelling Uncoded 11/10/24 12:56 Current Medications Generic Name Dose Route Start Last Admin Trade Name Freq PRN Reason Stop Dose Admin Sodium Chloride 1,000 mls @ 30 mls/hr 11/15/24 06:00 11/15/24 06:18 Sodium Chloride 0.9% IV 11/16/24 05:59 30 mls/hr .Q24H MADELYN Administration PFSH Anesthesia Family History Grandmother CAD (coronary artery disease) Diabetes Mother Hyperlipidemia Hypertension Grandfather Colon cancer Denies family history of Ovarian cancer Hypercholesteremia Breast cancer Uterine cancer Thyroid disease Stroke Social History Smoking and tobacco/nicotine status: never used tobacco/nicotine Female Reproductive History Spontaneous abortions: No Data Anesthesia Cardiac Studies: No Data to Display
[2024-11-15] MEDS: ceFAZolin 2,000 mg SDV 2000 MG IVP ×3 (06:59→23:40)
[2024-11-15] MEDS: lidocaine-epi 1% 20 mL INJ INJECTION (07:51)
[2024-11-15] MEDS: VANCOMYCIN ADD-Vantage 1,000 MG VIAL 1000 MG XX ×2 (07:51→09:27)
[2024-11-15] MEDS: heparin, porcine 1,000 unit/mL INJ 10 mL 10000 UNIT IRRIGATION (07:52)
--- NOTE | 2024-11-15 09:55 | W.PM.OPSUD ---
Surgery/Procedure H&P Update DATE OF PROCEDURE: November 15, 2024 DATE H&P PERFORMED: 10/29/24 H&P UPDATE INFORMATION: I have reviewed H&P completed within last 30 days, I have examined patient prior to procedure and No changes to prior documentation PREOP DIAGNOSIS: L5-S1 spondylolisthesis; lumbar stenosis with neurogenic claudication PLANNED PROCEDURE: Operation Date: 11/15/24 07:00 Proposed Procedures p Posterior Lumbar Interbody Fusion PLIF(Not Applicable) - Alfonso Elise DO
--- NOTE | 2024-11-15 10:13 | P.OP_ITS ---
Operative Report Date of procedure: November 15, 2024 Pre-op diagnosis: L5-S1 spondylolisthesis Lumbar stenosis with neurogenic claudication Post-op diagnosis: same Surgeon: Alfonso Elise DO Estimated blood loss (mL): 200 Procedure: 1. L5/S1 Interbody fusion with posterolateral fusion 2. Instrumentation L5/S1 3. Cage at L5/S1 4. L5/S1 laminectomy with facetectomies 5. use of autograft from same incision 6. allograft 7. Bone marrow aspirate from right iliac crest 8. Reduction of spondylolisthesis 9. Use of computer navigation/stereotactic for the spine Patient is brought to the operative suite. After undergoing anesthesia, the patient had neuro monitoring attached. Patient was then placed in the prone position on the Ermias table. All areas of impingement were well-padded. Patient was then prepped and draped in the normal sterile fashion. Skin incision was then made over the L5/S1 space. Subperiosteal dissection was made out to the transverse processes of L5 and S1. Once the exposure was complete attention was then brought to placing the pedicle screws. Prior to placing the pedicle screws the dakick bone marrow aspirate kit was used to aspirate bone marrow aspirate. This was done by using the sharp probe to open up the bone. Aspiration was performed and then the blunt probe was then used to dissect down to through the bone tunnel. An aspirating well drawn back a millimeter approximately 20 cc of bone marrow aspirate was used. Admixed with the allograft and autograft bone that will be used. Next attention was brought to placing the fiducial for the computer navigation. This was done by placing 2 pins in the right iliac crest for later removed. The fiducial was then attached and then centimeters brought brought in and spun around the patient. Information from the computer then later used for placing pedicle screws. The technique for placing the pedicle screws was to use a drill followed by the gearshift probe linked to computer navigation. Followed by the ball probe to feel the superior inferior medial lateral sal of the pedicles. Then placement of the screws using computer navigation. Was done at each pedicle. Screws were placed at L5 bilaterally and S1 . Next attention was brought to performing the laminectomy ofL5. This was done using the high-speed bur Kerrisons and curettes. Once the lamina was removed and then attention was brought to performing a partial facetectomy on the contralateral side. This was done again using the high-speed bur curettes and Kerrisons. The ligamentum flavum was taken down bilaterally from L5 to S1. Attention was then brought to the facet on the ipsilateral side. The facet was taken down. The S1 nerve was decompressed as it passed around the S1 pedicle. The laminectomy was done for purposes of decompressing the nerve as well as placement of the cage. The L5 nerve was identified as it traversed through the L5/S1 foramen. The thecal sac was identified and retracted. The L5/S1 disc space was identified. Using a knife the disc base was opened. And then sequential tanja were placed. The first shaver was a 6 and the last shaver was a 8. Using a pituitary and down going curette the endplates were scraped and disc material was removed from the space. Once adequate decompression of the disc base was felt to be had. Osteoamp sponge was packed into the anterior aspect of the disc base. Then a size 8 cage from [employer] was placed after packing osteoamp into the cage. While placing the cage the thecal sac and S1 nerve was protected. C arm was used to ensure that the cages placed in the appropriate position. Attention was then brought to attaching the rods to the screws placed in the L5 bilaterally and S1. The S1 screw was locked in purse above the L5 screw reduction tool was used to reduce the L4 screw to the ana allowing reduction of the L5-S1 spondylolisthesis. Caps were torqued into position. Locking the construct in place. Wound was copiously irrigated and then attention was brought to decorticating the facets and transverse processes laterally. Bone that was taken down from the lamina was used along with osteoamp fibers and sponges were packed into the lateral gutters along the facet joints. This was done bilaterally. Wound was then closed in a layered fashion starting with the thoracolumbar fascia. 0-vicryl was used the sub cutaneous tissue was closed with 2-0 vicryl and skin with 4-0 monocryl. Glue was then used to seal the skin and a steril dressing was applied. Patient was then placed in the supine position. The endotracheal tube was removed and patient was transferred to the PACU in stable condition.
[2024-11-15] MEDS: fentaNYL 50 mcg/mL INJ 2mL IVP ×2 (10:36→10:54)
--- NOTE | 2024-11-15 11:55 | ANE.PACU2 ---
Inpatient post-anesthesia follow up: Airway intact: Yes Vital signs: Temperature 97.8 F Pulse Rate 59 Respiratory Rate 16 Blood Pressure 95/63 Pulse Oximetry 98 Oxygen Delivery Me thod Room Air Oxygen Flow Rate 10 Fraction of Inspir ed Oxygen Hydration adequate: Yes Nausea and vomiting: No Pain level: 1 Mental status: Baseline
--- NOTE | 2024-11-15 12:23 | PC.NURSE ---
1023-Patient arrived from OR moaning weakly, tearful, mildly restless. Attempted to turn over to find a comfortable laying position, able to follow basic commands and able to move all 4 extremities. 1036-50mcg fentanyl administered. Pain rated 10 1054-50mcg fentanyl administered. Pain rated 10. Patient able to turn over to left side on own power. 1100-Stated pain relieved to a 5. laying left side comfortably. 1110-Patient moaning loudly stating sharp/cramping pain in right leg. blood pressure 89/56. laying left side, unwilling to lay on back at this time. 1119-Dr. Elise notified of spasm pain, and blood pressure trend, suggested steroids. Dr. Elise informed patient has allergy/adverse reaction to steroids on chart. Dr. Elise had no other suggested modalities at this time and recommended anesthesia assessment. 1125-Patient resting comfortably on left side, states that when leg is not spasming her pain is 4-5 on her surgical site which she says is tolerable. 1134- 50ml serosangunious drainage removed, hemovac decompressed. 1138-called floor to give report. Told by Michelle CHILDERS that they did not have staff to accommodate the patient at this time and to check back in 30 min. 1155-Mary CHILDERS called PACU and took report. 1158- Patient transferred to [facility]
[2024-11-15] MEDS: lactated ringers 1,000 ML 90 ML IV ×2 (12:56→23:39)
[2024-11-15] MEDS: ketorolac 30 mg/mL INJ IVP ×2 (12:57→19:19)
[2024-11-15] MEDS: acetaminophen 325 mg Tablet 650 MG PO ×2 (12:57→19:18)
[2024-11-15] MEDS: HYDROcodone-acetaminophen 5-325 mg Tablet PO ×2 (13:41→17:43)
[2024-11-15] MEDS: tizanidine 4 mg Tablet 2 MG PO ×2 (14:36→20:33)
--- NOTE | 2024-11-15 15:29 | XR_ITS ---
WS: [id number] XR lumbar spine 2-3V* [id number] REASON FOR EXAM: DEXTER PICS FINDINGS: Posterior decompression with pedicle screws and interconnecting rods and intervertebral body fusion device L5-S1. Surgical appliances are intact and in proper position and alignment. Moderate anterolisthesis of L5 on S1 unchanged from the preoperative exam. XR/XR lumbar spine 2-3V* [id number] IMPRESSION: Posterior lumbar fusion as above.
[2024-11-15] MEDS: docusate sodium 100 mg Capsule PO (17:43)
[2024-11-15] MEDS: alum-mag-hydroxide-sime 30 mL UDC PO (23:48)
[2024-11-16 00:20] VITALS: BP 100/64; PULSE 56; RESP 17; TEMP 36.9; O2SAT 94
[2024-11-16] MEDS: ketorolac 30 mg/mL INJ IVP (03:16)
[2024-11-16 04:41] VITALS: BP 116/60; PULSE 55; RESP 19; TEMP 36.6; O2SAT 95
[2024-11-16] MEDS: ceFAZolin 2,000 mg SDV 2000 MG IVP (06:35)
[2024-11-16 07:38] VITALS: BP 114/73; PULSE 53; RESP 18; TEMP 36.8; O2SAT 94
[2024-11-16] MEDS: docusate sodium 100 mg Capsule PO (08:00)
[2024-11-16] MEDS: HYDROcodone-acetaminophen 5-325 mg Tablet PO (08:01)
[2024-11-16] MEDS: predniSONE 20 mg Tablet PO (08:01)
[2024-11-16] MEDS: tizanidine 4 mg Tablet 2 MG PO (08:01)
--- NOTE | 2024-11-16 09:19 | PC.CHAP ---
Pastoral Care Encounter/Spiritual Assessment Type of Contact [] Declined deputy sheriff custody visit [] Patient/Family/Request visit [] Outpatient visit [] Follow-up visit [] Physician referral [] Code/Alert [x] Routine visit [] Staff referral [] Actively dying [] Patient sleeping [] Family support [] [] Out of room [] Palliative care [] [] Receiving care in room [] Pre-surgical visit [] Trauma [] Long length of stay [] ICU visit [] Other: Relational/Emotional Strength [x] Patient feels connected with others/family/visitors/staff [] Distress [] Loneliness/isolation [] Abandonment Spirituality of Patient [] Person of Soni [] Attends Sikhism of their Soni [] Believes in Prayer [] Reads Bible or Cheondoism materials [x] There are Spiritual issues to be addressed [employer] Senior Project Manager Interventions [] Prayer [x] Active listening [x] Non-anxious presence [x] Spiritual/emotional support [] Crisis/trauma care [] Spiritual counseling [] Bereavement support [] Provided bereavement packet [] Provided Bible/devotional materials [] Provided toy/stuffed animal, coloring book to patient or family member [] Provided Communion [] Anointing/[place] [] Salvation [x] Completed spiritual assessment [] Other: Impact on Illness or Injury [] Angry [] Fearful [] Anxious [] Often cries [] Exhaustion [] Unable to work [] Unable to attend mosque [] Unable to walk/stand [] Unable to read [] Unable to drive [] Unable to eat/drink [] Unable to sleep [] Unable to be with family [] Patient intubated [] Other: Summary Time spent with patient 5 min
--- NOTE | 2024-11-16 10:01 | PM.DCS ---
Discharge Providers Date of Admission: 11/15/24 10:05 Date of Discharge: November 16, 2024 Attending Provider at Admission: Alfonso Elise DO Attending Provider at Discharge: Alfonso Elise DO Primary Care Provider: Audelia Guzman APN Reason for Visit Reason for Visit: M43.17 Physical Exam Narrative: Patient up ambulating no leg pain she is complaining of some back pain. Overall doing well. Urinary Catheter Management: Wallace: Cath Placed During This Visit: yes, but has since been removed by the nurse Reason for Continuing Indwelling Catheter: Other Urinary Catheter Date of Insertion: 11/15/24 Urinary Catheter Time of Insertion: 07:10 Date Urinary Catheter Removed: 11/16/24 Time Urinary Catheter Discontinued: 06:00 Discharge Data Studies Completed and Pending Completed Studies During Hospitalization Category Date Time Status XR lumbar spine 2-3V* [id number] Routine Exams 11/15/24 15:29 Completed Radiology Impressions Lumbar Spine X-Ray 11/15/24 15:29 IMPRESSION: Posterior lumbar fusion as above. Laboratory Results Urine HCG, Qual Negative (Negative) 11/15/24 06:34 Blood Type O Negative 11/15/24 06:05 Rho(D) Type Rh negative 11/15/24 06:05 Antibody Screen Negative 11/15/24 06:05 Vitals Last Vital Signs Temp 98.2 F 11/16/24 07:38 Pulse 53 L 11/16/24 07:38 Resp 18 11/16/24 07:38 BP 114/73 11/16/24 07:38 Pulse Ox 94 11/16/24 07:38 O2 Del Method Room Air 11/16/24 07:38 O2 Flow Rate 10 11/15/24 10:45 Discharge Plan Discharge Patient Disposition: Home Condition: Stable Prescriptions: New hydrocodone-acetaminophen 5-325 mg tablet 1 - 2 tab PO .Q4-6H Qty: 40 0RF Continued tizanidine 2 mg capsule 2 mg PO TID (DME) Cam boot to right See Rx Instructions .Route .MEDSUPPLY Qty: 1 0RF Rx Instructions: As directed prednisone 20 mg tablet 20 mg PO DAILY Qty: 5 0RF Held celecoxib [Celebrex] 200 mg capsule 200 mg PO BID Qty: 60 1RF Hold Instructions: Resume on 02/15/25. Discharge Orders: Discharge Order (Routine); Ordered 11/16/24 Ordered By: Alfonso Elise Other Ambulatory Orders: DME: Walker (Order) Location: None Selected Ordered By: Alfonso Elise Referrals: Alfonso Elise DO [Physician] - 11/30/24 8:45 am Discharge Diet: Advance as tolerated Discharge Activity: Limit activity as instructed Patient Instructions: Acute Wound Care (DC), Opioid Safety, Post Anesthesia Care Activity Restrictions/Additional Instructions: Thank you for [facility] for your care! The following is a list of instructions, from your provider, to follow upon your discharge to ensure you have the optimal recovery from your recent injury orsurgery. Follow-up care is a wilson part of your treatment and safety. Be sure to make and go to all appointments, and call your doctor if you are having problems. If you do not already have a follow-up appointment made, call Dr. Elise office in the next 1-3 days to make follow up appointment for 1 weeks at [phone]. It is also a good idea to know your test results and keep a list of the medicines you take. Medications will be prescribed for you at your provider's discretion. These medications are to be used as instructed; if they are taken more often that prescribed they will not be refilled early and in most cases will not be refilled at all. > When a refill is needed,you should contact jose gates 2-3 business days before your prescription runs out. Medications will NOT be refilled by rehab director occupational therapist providers after hours! > Many pain medications contain Tylenol (Acetaminophen). Do not consume more than 4,000 mg of Tylenol per day in total with any combination ofmedications. > Pain medications can cause constipation. Please use an over the counter stool softener as directed, while taking pain medications. Consulty our local pharmacist with questions or recommendations on stool softeners. If constipation persists, contact our office or your primary care provider. > While under our care,you are not to receive pain medications or other controlled substances from any other provider unless our office is notified and approves. Any attempts to do so will result in refusal to prescribe any further pain medications and possible dismissal from our practice. Follow-up in clinic in 1 week we will change dressing. Leave the dressing on in clinic. ? Showering is permitted, however we ask that you do not take a bath, sit in a whirlpool / Jacuzzi, or go swimming for 1 month. For only the first 2 days after surgery, lt wilt be necessary for you to cover your wound/dressing with plastic and tape to keep it dry. ? Walking is essential for the healing process after surgery. We would like you to slowly advance your walking. This should be done on relatively flat clear ground (inside or out) or can be done on a treadmill. Remember this goal does not have to happen all at once, slowly increase your distance and duration. This can be broken into more more than one walk per day as tolerated. Patients who walk as directed after surgery rarely require Physical Therapy. In the unlikely event this issue arises your provider will direct hospital staff to make the appropriate arrangements. ? No lifting over 5 pounds {a gallon of milk) or bending/twisting until further notice. Each of these activities places an unnecessary amount of stress onto the body and can impede the delicate healing process. > Instead of bending at the waist, keep your back straight and bend at the knees. > Instead of twisting your torso, keep your back straight and turn your entire body with your feet. ? You may sleep in any position which makes you comfortable. Many patients find comfort sleeping in a reclining chair. It is not abnormal to have difficulty sleeping for the first several weeks following your surgery. We recommend trying Benadry! or Tylenol PM as directed to help with your sleeping difficulties. Both medications are over the counter and available withoutprescription. ? NO SMOKING!!! Smoking dramatically increases the probability of developing postoperative wound infections. ? Common complaints after lumbar and/or thoracic spine surgery include, but are not limited to: numbness and/or tingling in the legs, pain around the incision and surrounding tissues, muscle spasms, or stiffness of the middle to low back. Contact our office if these symptoms persist or if an acute change occurs. ? No driving for the first 3-5days, and not while taking narcotics until seen at your follow-up appointment and cleared. There are no restrictions for riding on short trips, however if you take a longer trip, arrangements should be made to make regular stops to get out of the vehicle and stretch . ? Swelling is an unfortunate event that will take place with any surgery and is the primary source of your postoperative discomfort. While walking and regular approved activities helps control inflammation, there are additional steps you can take to minimizeswelling. > Place ice over the surgical site and surrounding tissue for twenty minutes, followed by applying a low/medium heat (heating pad) for an additional twenty minutes every 1-2 hours as needed for painrelief. > You may use of over the counter anti-inflammatory medications (Ibuprofen, Motrin, Aleve, Advil, etc) as directed on the package label. These types of medicines wm significantly reduce the amount of discomfort you experience after surgery from swelling. It should be noted that if you have and allergy to any of these medications, or a history of ulcers or kidney disease you should consult you primary care provider prior to starting these medications. Discharge Attestations Time Spent in Discharge Care*: less than 30 min Quality Metrics Clinical Quality Measures [ No reported AMI, CVA or VTE this stay] Coding Level of Care Code Acute Code for Sana Fwlani
--- NOTE | 2024-11-16 11:00 | PC.NURSE ---
This nurse removed hemovac drain and covered site with sterile gauze and a covaderm. Pt tolerated well.
--- NOTE | 2024-11-16 12:26 | PC.SOCIAL ---
CM to see patient she states she would like a rollator walker from HOME and delivered to her house cause her ride was here to pick her up, Order Faxed to HOME at this time
--- NOTE | 2024-11-16 15:56 | PC.SOCIAL ---
Cyber access done for jeff soni done. Pre-Cert number assigned: [id number]
== END 2024-11-16 11:12 | disposition home or self-care (01) ==
LOC: MEDSURG 10:05
PROVIDERS: Anesthesiology; Admitting Provider Orthopaedic Surgery; PCP Nurse Practitioner; Visit Provider Orthopaedic Surgery
PROC: (CPT 22612; principal; 2024-11-15 07:00)
DX: M43.17 Spondylolisthesis, lumbosacral region (principal); M48.062 Spinal stenosis, lumbar region with neurogenic claudication; K21.9 Gastro-esophageal reflux disease without esophagitis
CPT/HCPCS: 22633; 22840; 22853; 63052; 20936; 20930; 20939; 61783; 36415; 51702; 72100; 76000; 81025; 86850; 86900; 97161; 97530; C1713; G0378; J0131; J0330; J0690; J1171; J1200; J1644; J1720; J1885; J2250; J2371; J2405; J2704; J3010; J3370; J3490; J7030; J7120; J7512; J9999

== ENCOUNTER → 2024-12-14 07:45 | Outpatient (BNVA) | payer BC, MEDICAID, SELFPAY | PROVIDERS: PCP Nurse Practitioner; Visit Provider Orthopaedic Surgery | DX: M43.17 Spondylolisthesis, lumbosacral region (principal); Z98.1 Arthrodesis status | CPT/HCPCS: 72100 ==

== ENCOUNTER → 2025-01-04 15:49 | Outpatient (BNVA) | payer BC, MEDICAID, SELFPAY | PROVIDERS: PCP Nurse Practitioner; Visit Provider Nurse Practitioner | DX: Z12.4 Encounter for screening for malignant neoplasm of cervix (principal) | CPT/HCPCS: 88175 ==

== ENCOUNTER → 2025-01-25 10:55 | Outpatient (BNVA) | payer BC, MEDICAID, SELFPAY | PROVIDERS: PCP Nurse Practitioner; Visit Provider Orthopaedic Surgery | DX: M54.9 Dorsalgia, unspecified (principal) | CPT/HCPCS: 72100 ==

== ENCOUNTER → 2025-02-22 08:18 | Outpatient (BNVA) | payer BC, MEDICAID, SELFPAY | PROVIDERS: PCP Nurse Practitioner; Visit Provider Orthopaedic Surgery | DX: Z98.1 Arthrodesis status (principal) | CPT/HCPCS: 72100 ==

== ENCOUNTER → 2025-04-26 08:15 | Outpatient (BNVA) | payer BC, MEDICAID, SELFPAY | PROVIDERS: PCP Nurse Practitioner; Visit Provider Orthopaedic Surgery | DX: Z98.1 Arthrodesis status (principal) | CPT/HCPCS: 72100 ==

== ENCOUNTER 2025-05-14 16:54 | Emergency (ER) | payer BC, MEDICAID, SELFPAY ==
--- OUTSIDE RECORDS SUMMARY | 2017-08-28 08:39 | XMS_ITS | Continuity of Care Document ---
Author Organization [facility], [place] Address [address] [place] [address] Phone Care Team Providers Care Speech/Language Therapist Name Role Phone Unavailable Unavailable Unavailable Advance Directives Directive Yes / No Effective Date File Name No Information Encounters Encounter Description Practice Location Reason(s) For Visit Diagnoses Date Provider Providers Copied on Encounter [facility], [place], [address], [place], [address], [place] tel:[phone] [facility] No Information 8 No Information Referring Provider: JEROMY KERR II, [address] [place], [address]. tel:[phone] Family History Family Member Type Diagnosis Age At Onset No Information Payers Payer name Insurance type Covered republican ID Authoriza tion(s) [facility] [id number] Social History Type Description Quantity Date Captured Comments Sex Female Smoking Status No Information Chief Complaint And Reason For Visit No Information History Of Present Illness Encounter Date Complaint History Of Prese nt Illness No Information Instructions Date Instruction Additional Infor mation No Information Assessments Type Assessment Date No Information
[2025-05-14 17:02] VITALS: BP 134/82; PULSE 75; RESP 17; TEMP 36.9; O2SAT 100; BMI 40.5
--- OUTSIDE RECORDS SUMMARY | 2025-05-14 17:03 | XMS_ITS | Encounter Summary ---
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 Procedures US OB LTD 1 OR MORE FETUSES Africa Maria FNP [address] [place] [address] Phone: tel: fax: [facility] Ultrasound Services-Dominick Vizcaino Harjeet [address] [place] [address] Phone: tel: fax: Referral ID Status Reason Start Date Expiration Date Visits Re quested Visits Authorized [id number] Closed 08/26/2017 09/26/2018 1 1 TANK SEALER AND TESTER * Outpatient Services (Routine) - Closed Specialty Diagnoses / Procedures Referred By Major patino Referred To Contact Radiology Diagnoses Anomaly of heart of fetus affecting , antepartum, 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 Procedures US OB FOLLOW UP PER FETUS Africa Maria FNP [address] [place] [address] Phone: tel: fax: [facility]-Dominick Vizcaino Harjeet [address] [place] [address] Phone: tel: fax: Referral ID Status Reason Start Date Expiration Date Visits Re quested Visits Authorized [id number] Closed 08/26/2017 09/26/2018 1 1 TANK SEALER AND TESTER Encounter Details Date Type Department Care Team (Late st Contact Info) Description 08/26/2017 Ancillary Orders [facility] Family Medicine [place] [address] [place] [address] Africa Maria FNP [address] [place] [address] Anomaly of heart of fetus affecting , antepartum, single or unspecified fetus; Single umbilical artery Social History Tobacco Use Types Packs/Day Years Used Date Smoking Tobacco: Former Cigarettes 0.3 1 Smokeless Tobacco: Former Alcohol Use Standard Drinks/Week Comments No 0 (1 standard drink = 0.6 oz pur e alcohol) Comments Yes Sex and Gender Information Value Date Recorded Sex Assigned at Not on file Legal Sex Female 5:57 AM FUEL TANK SEALER AND TESTER Gender Identity Not on file Sexual Orientation Not on file documented as of this encounter Plan of Treatment Not on file documented as of this encounter Results * US OB FOLLOW UP PER FETUS (09/29/2017 1:32 PM FUEL TANK SEALER AND TESTER) Anatomical Region Laterality Modality Pelvis Ultrasound 09/29/2017 1:17 PM FUEL TANK SEALER AND TESTER Impressions 09/29/2017 2:59 PM FUEL TANK SEALER AND TESTER IMPRESSION Findings Comment Estimated weight is appropriate for gestational age Reassuring modified biophysical profile Narrative 09/29/2017 2:59 PM FUEL TANK SEALER AND TESTER Jordan Follow Up Pat. Name: MIRELLA FARIAS Study Date: 09/29/2017 1:17pm Pat. NO: [id number] Referring MD: JOVITA ZHOU Site: [facility] Weigher Operator: Suzanne Giraldo RDMS : 1990 Age: 26 INDICATION Single Umbilical Artery (SUA) CODING Diagnosis O35.8XX0: Maternal care for other (suspected) abnormality and damage: Unspecified Fetus. Z3A.32: Weeks Gestation of . Procedures 94704: OB US Follow-up. HISTORY OB History : 2. Para: 1. METHOD Transabdominal ultrasound examination. Adequate visualization. Garcia . Number of fetuses: 1. DATING Ultrasound examination on: 09/29/2017 GA by U/S based upon: AC, BPD, EFW, Femur, HC GA by U/S 32 w + 0 d MARLEN by U/S: 11/24/2017 Method of dating: Restore dating from previous exam Assigned: Dating performed on 08/15/2017, based on ultrasound (AC, BPD, EFW, Femur, HC) Assigned GA 32 w + 2 d Assigned MARLEN: 11/22/2017 BIOMETRY Main Biometry: BPD 81.3 mm 53% 32w 5d Hadlock OFD 98.4 mm 37% 31w 6d Pallavi HC 288.4 mm 7% 31w 5d Hadlock AC 267.3 mm 12% 30w 6d Hadlock Femur 64.0 mm 59% 33w 0d Hadlock Weight Calculation: EFW 1,834 g 25% 31w 3d Hadlock EFW (lb,oz) 4 lb 1 oz Calculated by Hadlock ([id number]) Proportionality Ratios: Cephalic index 0.83 78% Nicolaides HC / AC 1.08 63% Nicolaides FL / BPD 0.79 FL / AC 0.24 GENERAL EVALUATION Cardiac activity: present. FHR 136 bpm. Presentation: cephalic. Amniotic fluid: MVP 5.0 cm. ANNMARIE 15.6 cm. Q1 5.0 cm, Q2 3.1 cm, Q3 2.9 cm, Q4 4.6 cm. ANATOMY The following structures were visualized with normal appearance: Brain Lateral cerebral ventricles. Heart Four chamber view. Stomach Fluid filled stomach visualized. Kidneys Kidneys appear normal bilaterally. Bladder Fluid filled bladder visualized. Limited visualization of heart. NON STRESS TEST Reactive FHR: 2 - reactive, Variability: moderate. Baseline rate 135 bpm. Acceleration: Present. Deceleration: Not present. Procedure Note Luis CALVILLO, Nabeel Ayala MD - 09/29/2017 Jordan Follow Up Pat. Name:IVAN FARIASCASIerica Date:09/29/2017 1:17pm Pat. NO: [id number] :JOVITA ZHOU [facility]uzanne Giraldo RDMS :1990Age:26 INDICATION Single Umbilical Artery (SUA) CODING Diagnosis O35.8XX0: Maternal care for other (suspected) abnormality and damage: Unspecified Fetus. Z3A.32: Weeks Gestation of . Procedures [id number]: OB US Follow-up. HISTORY OB History : 2. Para: 1. METHOD Transabdominal ultrasound examination. Adequate visualization. Garcia . Number of fetuses: 1. DATING Ultrasound examination on:09/29/2017 GA by U/S based upon:AC, BPD, EFW, Femur, HC GA by U/S32 w + 0 d MARLEN by U/S:11/24/2017 Method of dating:Restore dating from previous exam Assigned:Dating performed on 08/15/2017, based on ultrasound (AC, BPD, EFW, Femur, HC) Assigned GA32 w + 2 d Assigned MARLEN:11/22/2017 BIOMETRY Main Biometry: BPD 81.3 mm 53% 32w 5d Hadlock OFD 98.4 mm 37% 31w 6d Pallavi HC 288.4 mm 7% 31w 5d Hadlock AC 267.3 mm 12% 30w 6d Hadlock Femur 64.0 mm 59% 33w 0d Hadlock Weight Calculation: EFW 1,834 g 25% 31w 3d Hadlock EFW (lb,oz) 4 lb 1 oz Calculated by Stephen ([id number]-FL) Proportionality Ratios: Cephalic index 0.83 78% Nicolaides HC / AC 1.08 63% Nicolaides FL / BPD 0.79 FL / AC 0.24 GENERAL EVALUATION Cardiac activity: present. FHR 136 bpm. Presentation: cephalic. Amniotic fluid: MVP 5.0 cm. ANNMARIE 15.6 cm. Q1 5.0 cm, Q2 3.1 cm, Q3 2.9 cm, Q4 4.6 cm. ANATOMY The following structures were visualized with normal appearance: Brain Lateral cerebral ventricles. Heart Four chamber view. Stomach Fluid filled stomach visualized. Kidneys Kidneys appear normal bilaterally. Bladder Fluid filled bladder visualized. Limited visualization of heart. NON STRESS TEST Reactive FHR: 2 - reactive, Variability: moderate. Baseline rate 135 bpm. Acceleration: Present. Deceleration: Not present. IMPRESSION Findings Comment Estimated weight is appropriate for gestational age Reassuring modified biophysical profile us Africa BAXTER US ORDERABLES Final Result * US OB LTD 1 OR MORE FETUSES (09/18/2017 3:15 PM FUEL TANK SEALER AND TESTER) Anatomical Region Laterality Modality Pelvis Ultrasound Impressions 09/19/2017 10:17 AM FUEL TANK SEALER AND TESTER : Single umbilical artery Normal amniotic fluid index COMMENTS Limited exam Alaina Milian RDMS Narrative 09/19/2017 10:17 AM FUEL TANK SEALER AND TESTER OBSTETRICAL ULTRASOUND REPORT Requested by: Africa Maria FNP Indication(s): Assess amniotic fluid CPT: 66639 - Limited OB Ultrasound GESTATIONAL AGE Selected EDC 11/20/2017 EGA: 31w0d DESCRIPTION Number: 1 Presentation: Cephalic Heart Rate: 137 bpm Amniotic Fluid: 18.17 ANATOMY TABLE Normal Abnormal Not Adequately Visualized Previously Documented Structure Comments Nuchal Skin Cavum Septa Pellucida* p Choroid Plexus* p Lateral Ventricle* p Midline Falx* p Cerebellum* p Cisterna Magna* p Face* p Spine* p 4 Chamber Heart* y p LVOT p RVOT y Abdominal Wall* p Cord Insertion* p Cord Vessels* a Single umbilical artery Stomach* y p Kidneys* p Bladder* y Gender 4 Extremities* p us Africa Maria DATA REVIEW SPECIALIST US ORDERABLES Final Result documented in this encounter Visit Diagnoses Diagnosis Anomaly of heart of fetus affecting , antepartum, 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
--- OUTSIDE RECORDS SUMMARY | 2025-05-14 17:03 | XMS_ITS | Clinical Summary ---
Author Organization [facility] Address [address] Jonasn: Epic Prelude ADT [place] [address] Care Team Providers Care Rn Postpartum Name Role Phone Kranthi Patel MD Primary Care Provider [phone] Allergies Active Allergy Reactions Criticality Noted Date Comments Neuromuscular Blockers, Steroidal Dizziness Low Phenol Rash,Anxiety Low 06/15/2009 Medications medroxyPROGESTERo ne (DEPO-PROVERA) 150 mg/mL SyringeIndication s:Encounter for initial prescription of injectable contraceptive Inject 1 mL (150 mg) by intramuscular injection every 90 days She is coming for dose to be given today.. 1 mL 1 11/28/19 18 Active raNITIdine (ZANTAC) 150 mg tablet Take 1 Tablet (150 mg) by mouth 2 times daily. 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/18/17 negati ve 09/18/2017 Resolved Problems Problem Noted Date Diagnosed Date Resolved Date Previous section co mplicating - Repeat C Section 11/13/17 at 12:00 pm 09/18/2017 12/24/2017 cardiac anomaly affect ing , antepartum 08/28/2017 12/25/2017 single umbilical artery 08/26/2017 12/24/2017 Supervision of high-risk 09/22/2013 08/26/2017 PIH ( induced hypertension) 09/21/2013 08/26/2017 Obesity 02/21/2013 08/26/2017 Nipple problem 02/16/2013 08/26/2017 Overview (12/13/2020): Inverted nipples Tobacco abuse 02/16/2013 02/21/2013 Rh negative status during 02/16/2013 12/24/2017 Constipation 02/03/2013 08/26/2017 Nausea with vomiting 02/03/2013 018 Malaise and fatigue 02/03/2013 02/22/20 13 Supervision of normal 02/03/2013 12/24/2017 Encounters Date Type Department Care Team Description 04/05/2025 External Device Data ST[facility] ABSTRACTION Provider, Abstract 04/05/2025 External Device Data STL ABSTRACTION Provider, Abstract 03/22/2025 External Device Data STL ABSTRACTION Provider, Abstract 03/02/2025 External Device Data STL ABSTRACTION Provider, Abstract 03/01/2025 External Device Data STL ABSTRACTION Provider, Abstract from Last 3 Months Immunizations Immunization Administration Dates Next Due (ADACEL/BOOSTRIX)(10 YR UP) TDAP VACCINE, 0.5ML, IM 09/18/2017,09/28/2013,08/29/2008 (M-M-R II/PRIORIX)(12 MO UP) MEASLES, MUMPS AND RUBELLA VIRUS VACCINE, 0.5 ML IM/SUBCUT 04/04/1998,01/27/1992 Dt Dtp Dtap Vaccine 04/04/1998, 2,04/29/1991,1990,1990 HIB, Unspecified Formulation 01/27/1992, 04/29/1991,02/25/1991,1990 Hepatitis A Vaccine 04/04/1998 Hepatitis B Vaccine 04/04/1998,04/10/1995 IPV/OPV 04/04/1998, 2,02/25/1991,1990 Influenza Vaccine Split 3+ Yrs PF IM 06/15/2013 Rho (D) IMMUNE GLOBULIN 1,50 0 UNIT(300 MCG) INJECTION 11/14/2017,08/22/2017,07/26/2013 Family History Medical History Relation Name Comments Healthy Brother 1 Healthy Brother 2 Healthy Brother 3 Healthy Brother 4 Healthy Father Healthy Maternal Grandfather Diabetes Maternal Grandmother Heart Disease Maternal Grandmother Healthy Mother Spont Ab Mother Healthy Paternal Grandfather Healthy Paternal Grandmother Healthy Sister 1 Healthy Sister 2 Healthy Son Relation Name Status Comments Brother 1 Alive Brother 2 Alive Brother 3 Alive Brother 4 Alive Father Alive Maternal Grandfather Alive Maternal Grandmother Alive Mother Alive Paternal Grandfather Alive Paternal Grandmother Alive Sister 1 Alive Sister 2 Alive Son Alive Social History Tobacco Use Types Packs/Day Years Used Date Smoking Tobacco: Former Cigarettes Q uit: 03/15/2017 Smokeless Tobacco: Former Alcohol Use Standard Drinks/Week Comments No 0 (1 standard drink = 0.6 oz pur e alcohol) Comments Unknown Sex and Gender Information Value Date Recorded Sex Assigned at Not on file Legal Sex Female 11:19 AM EMERGING SOLUTIONS EXECUTIVE Gender Identity Not on file Sexual Orientation Not on file Last Filed Vital Signs Vital Sign Reading Time Taken Comments Blood Pressure 108/68 01/16/2018 10:59 AM CDT Pulse 90 01/14/2018 12:49 PM CDT Temperature 37.1 C (98.8 F) 01/14/2018 12:49 PM CDT Respiratory Rate 18 01/16/2018 10:59 AM CDT Oxygen Saturation - - Inhaled Oxygen Concentration - - Weight 94.8 kg (209 lb) 01/16/2018 10:59 AM CDT Height 162.6 cm (5' 4 ) 01/16/2018 10:59 AM CDT Body Mass Index 35.87 01/16/2018 10:59 AM CDT Plan of Treatment Health Maintenance Due Date Last Done Comments HEPATITIS B VACCINES (3 of 3 - 3-dose series) 05/30/1998 04/04/1998, 04/10/1995 HPV VACCINES (1 - 3-dose SCD M series) 2017 PAP SMEAR 2020 05/06/2017 CERVICAL CANCER SCREENING 05/06/2022 HPV/Cotest (21-29) 05/06/2022 05/06/2017 HPV/Cotest (30-65) 05/06/2022 05/06/2017 Preventative Visit- Commercial 08/18/2024 INFLUENZA VACCINE (#1) 2025 06/15/2013 DTAP/TDAP/TD VACCINES (9 - T d or Tdap) 09/18/2027 09/18/2017, 09/28/2013, 08/29/2008, Additional history exists Procedures Procedure Name Priority Date/Time Associated Diagnosis Comments CERV/VAG CYTO SCREEN PAP RLFX HPV Routine 05/06/2017 4:24 PM CDT from Last 3 Months or Most Recently Relevant to Health Maintenance Results * CERV/VAG CYTO SCREEN PAP RLFX HPV (05/06/2017 4:24 PM CDT) CLINICAL INFORMATION SEE COMMENT 05/09/2017 8:19 AM CDT [facility] Comment: SCREENING LAST MENSTRUAL PERIOD SEE COMMENT 05/09/2017 8:19 AM CDT [facility] Comment:INFORMATION NOT PROV IDED PREV PAP: SEE COMMENT 05/09/2017 8:19 AM CDT [facility] Comment:INFORMATION NOT PROV IDED PREV BX: SEE COMMENT 05/09/2017 8:19 AM CDT [facility] Comment:INFORMATION NOT PROV IDED SOURCE Endocervix 05/09/2017 8:19 AM CDT [facility] ADEQUACY: SEE COMMENT 05/09/2017 8:19 AM CDT [facility] Comment: Satisfactory for evaluation. Endocervical/transformation zone component present. PAP INTERP SEE COMMENT 05/09/2017 8:19 AM CDT [facility] Comment:Negative for intraep ithelial lesion or malignancy. COMMENT SEE COMMENT 05/09/2017 8:19 AM CDT [facility] Comment: This Pap test has been evaluated with computer assisted technology. MIXED SIGNAL DESIGN ENGINEER: SEE COMMENT 2016 8:19 AM CDT [facility] Comment: KMY, CT(ASCP) CT screening location: [place] [address] Administration [place] [id number] Genital SWAB OF ENDOCERVIX / Unknown 05/06/2017 4:24 PM CDT 05/08/2017 6:06 AM CDT Narrative [facility] - 05/09/2017 8:19 AM CDT Performing Organization Information: Site ID: [facility] Address: Count includes the [facility] Administration [place] [address] Director: Benedicto Colunga MD Africa Maria GLASSWORKER PATHOLOGY/CYTOLOGY ORDERABLES Final Result [facility] from Last 3 Months or Most Recently Relevant to Health Maintenance Insurance * Guarantor: IZABELLA BURK Account Type Relation to Patient Date of Phone Billing Address Personal/Family [address] [place] [address] RX INFOCROSSING Medicaid Care Teams Rn Postpartum Relationship Specialty Start Date End Date Kranthi Patel MD [address] [place] [address] PCP - General Family Practice 08/09/13
--- OUTSIDE RECORDS SUMMARY | 2025-05-14 17:03 | XMS_ITS | Encounter Summary ---
Author Organization [facility] Address [address] [place] [address] Care Team Providers Care Patent Solicitor Name Role Phone Kranthi Patel MD Primary Care Provider [phone] Encounter Details Date Type Department Care Team (Latest Contact Info) Description 10/18/[address] [address] Ti Saravia DO NO ADDRESS ON FILE Acute upper respiratory infections of unspecified site (Primary Dx); Acute pharyngitis Social History Tobacco Use Types Packs/Day Years Used Date Smoking Tobacco: Never Assessed Comments Unknown Sex and Gender Information Value Date Recorded Sex Assigned at Not on file Legal 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
--- OUTSIDE RECORDS SUMMARY | 2025-05-14 17:03 | XMS_ITS | Clinical Summary ---
Author Organization [facility] Address [address] [place] [address] Care Team Providers Care Executive Office Manager Name Role Phone Kranthi Patel MD Primary Care Provider [phone] Allergies Active Allergy Reactions Criticality Noted Date [...] 02/21/2013 08/26/2017 Nipple problem 02/16/2013 08/26/2017 Overview (02/16/2013): Inverted nipples Tobacco abuse 02/16/2013 02/21/2013 Rh negative status during 02/16/2013 12/24/2017 Malaise and fatigue 02/03/2013 02/22/20 13 Nausea with vomiting 02/03/2013 018 Constipation 02/03/2013 08/26/2017 Supervision of normal 02/03/2013 12/24/2017 Immunizations Immunization Administration Dates Next Due (ADACEL/BOOSTRIX)(10 [...] Date Smoking Tobacco: Former Cigarettes 0.3 1 0 03/15/2016 - 03/15/2017 Smokeless Tobacco: Former Tobacco Cessation:Counseling Given: No Alcohol Use Standard Drinks/Week Comments No 0 (1 standard drink = 0.6 oz pur e alcohol) Comments No Sex and Gender Information Value Date Recorded Sex Assigned at Not on file Legal Sex Female 5:57 AM SUPPORTIVE EMPLOYMENT CASE MANAGER Gender Identity Not on file Sexual Orientation Not on file Last Filed Vital Signs Vital Sign Reading Time Taken Comments Blood Pressure 108/68 01/16/2018 10:59 AM CDT Pulse 90 01/14/2018 12:49 PM CDT Temperature 37.1 C (98.8 F) 01/14/2018 12:49 PM CDT Respiratory Rate 18 01/16/2018 10:59 AM CDT Oxygen Saturation 96% 01/14/2018 12:49 PM CDT Room Air Inhaled Oxygen Concentration - - Weight 94.8 [...] SCD M series) 2017 PAP SMEAR 2020 05/06/2017, 04/2013, 04/18/2011 CERVICAL CANCER SCREENING 05/06/2022 HPV/Cotest (21-29) 05/06/2022 05/06/2017, 04/18/2011 HPV/Cotest (30-65) 05/06/2022 05/06/2017, 04/18/2011 Preventative Visit- Commercial 08/18/2024 04/18/2011 INFLUENZA VACCINE (#1) 2025 06/15/2013 DTAP/TDAP/TD VACCINES (9 - T d or Tdap) 09/18/2027 09/18/2017, 09/28/2013, 08/29/2008, Additional history exists Procedures Procedure Name Priority Date/Time Associated Diagnosis Comments CERV/VAG CYTO SCREEN PAP RLFX HPV Routine 05/06/2017 4:24 PM CDT Encounter for supervision of normal in first trimester, unspecified from Last 3 Months or Most Recently Relevant to Health Maintenance Results * CERV/VAG CYTOPATH, THIN PREP IMAGR RFLX HPV (05/06/2017 4:24 PM CDT) CLINICAL INFORMATION SEE COMMENT 05/09/2017 8:19 AM CDT [facility] Comment: SCREENING LAST MENSTRUAL PERIOD SEE COMMENT 05/09/2017 8:19 AM CDT [facility] Comment:INFORMATION NOT PROV IDED PREV PAP: SEE COMMENT 05/09/2017 8:19 AM CDT [facility] Comment:INFORMATION NOT PROV IDED PREV BX: SEE COMMENT 05/09/2017 8:19 AM CDT [facility] Comment:INFORMATION NOT PROV IDED SOURCE Endocervix 05/09/2017 8:19 AM CDT [facility] ADEQUACY: SEE COMMENT 05/09/2017 8:19 AM CDT [facility] Comment: Satisfactory for evaluation. Endocervical/transformation zone component present. PAP INTERP SEE COMMENT 05/09/2017 8:19 AM CDT [facility] Comment:Negative for intraep ithelial lesion or malignancy. COMMENT SEE COMMENT 05/09/2017 8:19 AM CDT [facility] Comment: This Pap test has been evaluated with computer assisted technology. TRACER BULLET SECTION SUPERVISOR: SEE COMMENT 2016 8:19 AM CDT [facility] Comment: KMY, CT(ASCP) CT screening location: [place] [address] Administration [place] [id number] Genital SWAB OF ENDOCERVIX / Unknown 05/06/2017 4:24 PM CDT 05/07/2017 7:44 AM CDT Narrative [facility] - 05/09/2017 8:19 AM CDT Performing Organization Information: Site ID: [facility]: [facility] Address: [facility] Administration [place] [address] Director: Benedicto Colunga MD Africa Maria NARROW GAUGE BRAKEMAN PATHOLOGY/CYTOLOGY ORDERABLES Final Result [facility] from Last 3 Months or Most Recently Relevant to Health Maintenance Insurance [facility]ANCE RX INFOCROSSING Medicaid Advance Directives For more information, please contact: [phone] * Full Code (Latest Code Status on File) Date Activated Date Inactivated Comments 11/13/2017 3:48 PM 11/15/2017 5:24 PM * Full Code Date Activated Date Inactivated Comments 11/13/2017 10:29 AM 11/13/2017 3:48 PM Care Teams Executive Office Manager Relationship Specialty Start Date End Date Kranthi Patel MD [address] [place] [address] PCP - General Family Practice 08/09/13
--- OUTSIDE RECORDS SUMMARY | 2025-05-14 17:03 | XMS_ITS | Encounter Summary ---
Author Organization [facility] Address [address] [place] [address] Care Team Providers Care Bicycle Repairer Name Role Phone Kranthi Patel MD Primary Care Provider [phone] Encounter Details Date Type Department Care Team (Latest Contact Info) Description 05/03/[address] [address] Ti Saravia DO NO ADDRESS ON FILE ACNE NEC (Primary Dx); IMPACTED CERUMEN; ACUTE URI NOS Social History Tobacco Use Types Packs/Day Years Used Date Smoking Tobacco: Never Assessed Comments Unknown Sex and Gender Information Value Date Recorded Sex Assigned at Not on file Legal Sex Female 5:57 AM STAFFING RECRUITER Gender Identity Not on file Sexual Orientation Not on file documented as of this encounter Plan of Treatment Not on file documented as of this encounter Visit Diagnoses Diagnosis Other acne- Primary Impacted cerumen Acute upper respiratory infections of unspecified site documented in this encounter Care Teams Bicycle Repairer Relationship Specialty Start Date End Date Kranthi Patel MD [address] [place] [address] PCP - General Family Practice 08/09/13 documented as of this encounter
--- OUTSIDE RECORDS SUMMARY | 2025-05-14 17:03 | XMS_ITS | Encounter Summary ---
Author Organization [facility] Address [address] [place] [address] Care Team Providers Care Chronic Disease Manager Name Role Phone Kranthi Patel MD Primary Care Provider [phone] Encounter Details Date Type Department Care Team (Latest Contact Info) Description 06/13/[address] [address] Ti Saravia DO NO ADDRESS ON FILE DERMATITIS NOS (Primary Dx) Social History Tobacco Use Types Packs/Day Years Used Date Smoking Tobacco: Never Assessed Comments Unknown Sex and Gender Information Value Date Recorded Sex Assigned at Not on file Legal Sex Female 5:57 AM RETORT UNLOADER Gender Identity Not on file Sexual Orientation Not on file documented as of this encounter Plan of Treatment Not on file documented as of this encounter Visit Diagnoses Diagnosis Contact dermatitis and other eczema, due to unspecified cause- Primary documented in this encounter Care Teams Chronic Disease Manager Relationship Specialty Start Date End Date Kranthi Patel MD [address] [place] [address] PCP - General Family Practice 08/09/13 documented as of this encounter
--- OUTSIDE RECORDS SUMMARY | 2025-05-14 17:03 | XMS_ITS | Encounter Summary ---
Author Organization [facility] Address [address] [place] [address] Care Team Providers Care Home Energy Consultant Supervisor Name Role Phone Kranthi Patel MD Primary Care Provider [phone] Encounter Details Date Type Department Care Team (Late st Contact Info) Description 03/18/2003 Emergency [facility] Emergency Department [address] [place] [address] Matias Vera DO NO ADDRESS ON FILE OPEN WOUND KNEE/LEG/ANKLE (Primary Dx) Social History Tobacco Use Types Packs/Day Years Used Date Smoking Tobacco: Never Assessed Comments Unknown Sex and Gender Information Value Date Recorded Sex Assigned at Not on file Legal Sex Female 5:57 AM CARDIAC CATH LAB TECHNOLOGIST Gender Identity Not on file Sexual Orientation Not on file documented as of this encounter Plan of Treatment Not on file documented as of this encounter Visit Diagnoses Diagnosis Open wound of knee, leg (except thigh), and ankle, without mention of complication- Primary documented in this encounter Care Teams Home Energy Consultant Supervisor Relationship Specialty Start Date End Date Kranthi Patel MD [address] [place] [address] PCP - General Family Practice 08/09/13 documented as of this encounter
--- OUTSIDE RECORDS SUMMARY | 2025-05-14 17:03 | XMS_ITS | Encounter Summary ---
Author Organization [facility] Address [address] [place] [address] Care Team Providers Care Motor Coach Operator Name Role Phone Kranthi Patel MD Primary Care Provider [phone] Reason for Referral * Outpatient Services (Routine) - Closed Specialty Diagnoses / Procedures Referred By Contac t Referred To Contact Diagnoses Thoracic back pain Procedures MRI THORACIC WO CONTRAST Mo Carmona DO [address] [place] [address] Phone: tel: fax: [facility] Pre-Registration [place] CALL TO MAKE APPOINTMENT ONLY [address] [place] [address] Phone: tel: fax: Referral ID Status Reason Start Date Expiration Date V isits Requested Visits Authorized [id number] Closed Other 06/18/2011 06/17/2012 1 1 Encounter Details Date Type Department Care Team (Late st Contact Info) Description 06/18/2011 Ancillary Orders [facility] Pre-Registration [place] CALL TO MAKE APPOINTMENT ONLY [address] [place] [address] Mo Carmona DO [address] [place] [address] Thoracic back pain Social History Tobacco Use Types Packs/Day Years Used Date Smoking Tobacco: Every Day Cigarettes 0.3 1 Alcohol Use Standard Drinks/Week Comments No 0 (1 standard drink = 0.6 oz pur e alcohol) Comments No Sex and Gender Information Value Date Recorded Sex Assigned at Not on file Legal Sex Female 5:57 AM RACE STARTER Gender Identity Not on file Sexual Orientation Not on file documented as of this encounter Plan of Treatment Not on file documented as of this encounter Results * MRI THORACIC WO CONTRAST (06/27/2011 2:31 PM RACE STARTER) Anatomical Region Laterality Modality Spine Magnetic Resonan ce 06/27/2011 1:55 PM RACE STARTER Narrative 06/27/2011 3:05 PM RACE STARTER Exam: MRI THORACIC WO CONTRAST Date/Time of Exam: Jun 27, 2011 02:31:00 PM Reason For Exam: THORACIC BACK PAIN. Technique: MRI of the thoracic spine was performed without the administration of intravenous contrast. The thoracic spine is normal in sagittal alignment. The spinal cord appears normal. No intradural disease is present. The paraspinal tissues are unremarkable. Multiple endplate irregularities are present apparently reflecting old fractures throughout the mid thoracic spine. STIR images show no sites of abnormal signal. The neural foramina are widely patent. The intervertebral discs show minimal extrusions and surrounding spondylosis at T4-5, T5-T6 and T6-T7 levels. Impressions: 1. Multiple old mild traumatic changes are seen in the endplates throughout the mid thoracic spine. 2. The study is otherwise largely unremarkable. No recent fractures or inflammatory lesions are seen. Procedure Note Nathen Oh MD - 06/27/2011 Exam: MRI THORACIC WO CONTRAST Date/Time of Exam: Jun 27, 2011 02:31:00 PM Reason For Exam: THORACIC BACK PAIN. Technique: MRI of the thoracic spine was performed without the administration of intravenous contrast. The thoracic spine is normal in sagittal alignment. The spinal cord appears normal. No intradural disease is present. The paraspinal tissues are unremarkable. Multiple endplate irregularities are present apparently reflecting old fractures throughout the mid thoracic spine. STIR images show no sites of abnormal signal. The neural foramina are widely patent. The intervertebral discs show minimal extrusions and surrounding spondylosis at T4-5, T5-T6 and T6-T7 levels. Impressions: 1. Multiple old mild traumatic changes are seen in the endplates throughout the mid thoracic spine. 2. The study is otherwise largely unremarkable. No recent fractures or inflammatory lesions are seen. us Mo Carmona DO MR ORDERABLES Final Resu lt documented in this encounter Visit Diagnoses Diagnosis Thoracic back pain Pain in thoracic spine Thoracic back pain Pain in thoracic spine documented in this encounter Care Teams Motor Coach Operator Relationship Specialty Start Date End Date Krnathi Patel MD [address] [place] [phone] PCP - General Family Practice 08/09/13 documented as of this encounter
--- OUTSIDE RECORDS SUMMARY | 2025-05-14 17:03 | XMS_ITS | Encounter Summary ---
Author Organization [facility] Address [address] [place] [address] Care Team Providers Care Data Integration Analyst Name Role Phone Kranthi Patel MD Primary Care Provider [phone] Reason for Referral * Outpatient Services (Routine) - Closed Specialty Diagnoses / Procedures Referred By Contac t Referred To Contact Radiology Diagnoses induced hypertension, antepartum Procedures US OB FOLLOW UP + UMB ART Vinnie Blackwood MD [address] [place] [address] Phone: tel: fax: [facility] [address] [place] [phone] Phone: tel: fax: Referral ID Status Reason Start Date Expiration Date Visits Re quested Visits Authorized [id number] Closed 08/19/2013 09/19/2014 1 1 NG ENGINEER Encounter Details Date Type Department Care Team (Late st Contact Info) Description 08/19/2013 Ancillary Orders [facility] [address] [place] [phone] Vinnie Blackwood MD [address] [place] [address] induced hypertension, antepartum (Primary Dx) Social History Tobacco Use Types Packs/Day Years Used Date Smoking Tobacco: Every Day Cigarettes 0.3 1 Smokeless Tobacco: Former Alcohol Use Standard Drinks/Week Comments No 0 (1 standard drink = 0.6 oz pur e alcohol) Comments Yes Sex and Gender Information Value Date Recorded Sex Assigned at Not on file Legal Sex Female 5:57 AM ZONING ENGINEER Gender Identity Not on file Sexual Orientation Not on file Occupation Industry Job Start Date Job End Date Not on file Not on file Not on file Not on file documented as of this encounter Plan of Treatment Not on file documented as of this encounter Results * (ABNORMAL) US OB FOLLOW UP + UMB ART (08/19/2013 2:38 PM ZONING ENGINEER) Anatomical Region Laterality Modality Pelvis Ultrasound us Vinnie Blackwood MD ORDERABLES Final Re sult documented in this encounter Visit Diagnoses Diagnosis induced hypertension, antepartum- Primary Transient hypertension of , antepartum documented in this encounter Care Teams Data Integration Analyst Relationship Specialty Start Date End Date Kranthi Patel MD [address] [place] [address] PCP - General Family Practice 08/09/13 documented as of this encounter
--- OUTSIDE RECORDS SUMMARY | 2025-05-14 17:03 | XMS_ITS | Encounter Summary ---
Author Organization [facility] Address [address] [place] [address] Care Team Providers Care Sap Business Analyst Name Role Phone Kranthi Patel MD Primary Care Provider [phone] Encounter Details Date Type Department Care Team (Latest Contact Info) Description 06/09/2007 Outpatient Historical [facility] Medicine [place] [address] [place] [phone] [place], [facility] [address] [place] [phone] Unspecified Breast Disorder (Primary Dx) Social History Tobacco Use Types Packs/Day Years Used Date Smoking Tobacco: Never Assessed Comments Unknown Sex and Gender Information Value Date Recorded Sex Assigned at Not on file Legal Sex Female 5:57 AM GROUP ROOMS COORDINATOR Gender Identity Not on file Sexual Orientation Not on file documented as of this encounter Plan of Treatment Not on file documented as of this encounter Visit Diagnoses Diagnosis Unspecified breast disorder- Primary documented in this encounter Care Teams Sap Business Analyst Relationship Specialty Start Date End Date Kranthi Patel MD [address] [place] [phone] PCP - General Family Practice 08/09/13 documented as of this encounter
--- OUTSIDE RECORDS SUMMARY | 2025-05-14 17:03 | XMS_ITS | Encounter Summary ---
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 Procedures US OB LTD 1 OR MORE FETUSES Jovita Zhou MD [address] [address] Phone: tel: fax: [facility]-[address] [place] [address] Phone: tel: fax: Referral ID Status Reason Start Date Expiration Date Visits Re quested Visits Authorized [id number] Closed 09/25/2017 10/26/2018 1 1 CLERK * Outpatient Services (Routine) - Closed Specialty Diagnoses / Procedures Referred By Contac t Referred To Contact Perinatology Diagnoses Anomaly of heart of fetus affecting , antepartum, 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 Procedures US OB LTD 1 OR MORE FETUSES Jovita Zhou MD [address] [address] Phone: tel: fax: [facility] [address] Phone: tel: fax: Referral ID Status Reason Start Date Expiration Date Visits Re quested Visits Authorized [id number] Closed 09/25/2017 10/26/2018 1 1 CLERK * Outpatient Services (Routine) - Closed Specialty Diagnoses / Procedures Referred By Major patino Referred To Contact Perinatology Diagnoses Anomaly of heart of fetus affecting , antepartum, 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 Procedures US OB LTD 1 OR MORE FETUSES Jovita Zhou MD [address] [place] [phone] Phone: tel: fax: [facility] [address] Phone: tel: fax: Referral ID Status Reason Start Date Expiration Date Visits Re quested Visits Authorized [id number] Closed 09/25/2017 10/26/2018 1 1 CLERK * Outpatient Services (Routine) - Closed Specialty Diagnoses / Procedures Referred By Major patino Referred To Contact Perinatology Diagnoses Anomaly of heart of fetus affecting , antepartum, 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 Procedures US OB FOLLOW UP PER FETUS Jovita Zhou MD [address] [address] Phone: tel: fax: [facility] [address] Phone: tel: fax: Referral ID Status Reason Start Date Expiration Date Visits Re quested Visits Authorized [id number] Closed 09/25/2017 10/26/2018 1 1 CLERK Encounter Details Date Type Department Care Team (Late st Contact Info) Description 09/25/2017 Ancillary Orders [facility] [address] [facility] [address] [place] [address] Jovita Zhou MD [address] [place] [address] Anomaly of heart of fetus affecting , [...] on file Legal Sex Female 5:57 AM TOWN CLERK Gender Identity Not on file Sexual Orientation Not on file documented as of this encounter Plan of Treatment Not on file documented as of this encounter Results * US OB FOLLOW UP PER FETUS (10/30/2017 2:29 PM CDT) Anatomical Region Laterality Modality Pelvis Ultrasound 10/30/2017 2:12 PM CDT Impressions 10/30/2017 2:49 PM CDT IMPRESSION Findings Comment Estimated weight is appropriate for gestational age Reassuring modified biophysical profile Narrative 10/30/2017 2:49 PM CDT [place] [facility]. Name: MIRELLA FARIAS Study Date: 10/30/2017 2:12pm Pat. NO: [id number] Referring MD: JOVITA ZHOU Site: [facility] Equity Holder: Tenzin Bettencourt RDMS : 1990 Age: 27 INDICATION Single Umbilical Artery (SUA) CODING Procedures 03567: OB US Follow-up. HISTORY OB History : 2. Para: 1. METHOD Transabdominal ultrasound examination. Adequate visualization. Garcia . Number of fetuses: 1. DATING Method of dating: based on the stated dating GA by stated dating 37 w + 0 d MARLEN by stated dating : 11/20/2017 Ultrasound examination on: 10/30/2017 GA by U/S based upon: AC, BPD, EFW, Femur, HC GA by U/S 37 w + 0 d MARLEN by U/S: 11/20/2017 Assigned: Dating performed on 10/30/2017, based on the stated dating Assigned GA 37 w + 0 d Assigned MARLEN: 11/20/2017 BIOMETRY Main Biometry: BPD 89.9 mm 49% 36w 3d Hadlock OFD 111.8 mm 57% 37w 6d Pallavi HC 326.6 mm 25% 37w 0d Hadlock AC 332.8 mm 69% 37w 1d Hadlock Femur 71.9 mm 44% 36w 6d Hadlock Humerus 60.0 mm 21% 34w 6d Pallavi Weight Calculation: EFW 3,088 g 56% 37w 2d Hadlock EFW (lb,oz) 6 lb oz 13 Calculated by Stephen (JIQ-[id number]-FL) Proportionality Ratios: Cephalic index 0.80 35% Nicolaides HC / AC 0.98 31% Nicolaides FL / BPD 0.80 FL / AC 0.22 Head / Face / Neck Biometry: Horticultural Farmworker 7.4 mm GENERAL EVALUATION Cardiac activity: present. FHR 127 bpm. movements: present. Presentation: cephalic. Placenta: posterior, left. Amniotic fluid: MVP 5.5 cm. ANNMARIE 16.4 cm. Q1 5.5 cm, Q2 2.1 cm, Q3 4.8 cm, Q4 4.0 cm. ANATOMY The following structures were visualized with normal appearance: Brain Lateral cerebral ventricles. Heart Four chamber view. Stomach Fluid filled stomach visualized. Kidneys Kidneys appear normal bilaterally. Bladder Fluid filled bladder visualized. NON STRESS TEST Reactive FHR: 2 - reactive, Variability: moderate. Baseline rate 140 bpm. Acceleration: Present. Deceleration: Not present. Procedure Note Nabeel Smith II, MD - 10/30/2017 [place] [facility] Pat. Name:IVAN FARIASNNSterica Date:10/30/2017 2:12pm Pat. NO: [id number] MD:JOVITA ZHOU [facility] Bet[facility] RDMS :1990Age:27 INDICATION Single Umbilical Artery (SUA) CODING Procedures 66700: OB US Follow-up. HISTORY OB History : 2. Para: 1. METHOD Transabdominal ultrasound examination. Adequate visualization. Garcia . Number of fetuses: 1. DATING Method of dating:based on the stated dating GA by stated dating 37 w + 0 d MARLEN by stated dating :11/20/2017 Ultrasound examination on:10/30/2017 GA by U/S based upon:AC, BPD, EFW, Femur, HC GA by U/S37 w + 0 d MARLEN by U/S:11/20/2017 Assigned:Dating performed on 10/30/2017, based on the stated dating Assigned GA37 w + 0 d Assigned MARLEN:11/20/2017 BIOMETRY Main Biometry: BPD 89.9 mm 49% 36w 3d Hadlock OFD 111.8 mm 57% 37w 6d Pallavi HC 326.6 mm 25% 37w 0d Hadlock AC 332.8 mm 69% 37w 1d Hadlock Femur 71.9 mm 44% 36w 6d Hadlock Humerus 60.0 mm 21% 34w 6d Pallavi Weight Calculation: EFW 3,088 g 56% 37w 2d Hadlock EFW (lb,oz) 6 lb oz 13 Calculated by Stephen ([id number]-FL) Proportionality Ratios: Cephalic index 0.80 35% Nicolaides HC / AC 0.98 31% Nicolaides FL / BPD 0.80 FL / AC 0.22 Head / Face / Neck Biometry: Horticultural Farmworker 7.4 mm GENERAL EVALUATION Cardiac activity: present. FHR 127 bpm. movements: present. Presentation: cephalic. Placenta: posterior, left. Amniotic fluid: MVP 5.5 cm. ANNMARIE 16.4 cm. Q1 5.5 cm, Q2 2.1 cm, Q3 4.8 cm, Q4 4.0 cm. ANATOMY The following structures were visualized with normal appearance: Brain Lateral cerebral ventricles. Heart Four chamber view. Stomach Fluid filled stomach visualized. Kidneys Kidneys appear normal bilaterally. Bladder Fluid filled bladder visualized. NON STRESS TEST Reactive FHR: 2 - reactive, Variability: moderate. Baseline rate 140 bpm. Acceleration: Present. Deceleration: Not present. IMPRESSION Findings Comment Estimated weight is appropriate for gestational age Reassuring modified biophysical profile us Jovita Zhou MD US ORDERABLES Final R esult * US OB LTD 1 OR MORE FETUSES (10/23/2017 1:36 PM TOWN CLERK) Anatomical Region Laterality Modality Pelvis Ultrasound 10/23/2017 1:27 PM TOWN CLERK Impressions 10/23/2017 2:05 PM TOWN CLERK IMPRESSION Findings Comment Reassuring modified biophysical profile Narrative 10/23/2017 2:05 PM TOWN CLERK [place] [facility] Pat. Name: MIRELLA FARIAS Study Date: 10/23/2017 1:27pm Pat. NO: [id number] Referring MD: JOVITA ZHOU Site: [facility] Equity Holder: Charan Giraldo RDMS : 1990 Age: 27 INDICATION Single Umbilical Artery (SUA) CODING Diagnosis O35.8XX0: Maternal care for other (suspected) abnormality and damage: Unspecified Fetus. Z3A.36: Weeks Gestation of . Procedures 89703: Limited OB Ultrasound. HISTORY OB History : 2. Para: 1. METHOD Transabdominal ultrasound examination. Adequate visualization. Garcia . Number of fetuses: 1. DATING GA by stated dating 36 w + 0 d MARLEN by stated dating : 11/20/2017 Method of dating: Restore dating from previous exam Assigned: Dating performed on 10/16/2017, based on the stated dating Assigned GA 36 w + 0 d Assigned MARLEN: 11/20/2017 GENERAL EVALUATION Cardiac activity: present. FHR 169 bpm. Presentation: cephalic. NON STRESS TEST Reactive FHR: 2 - reactive, Variability: moderate. Baseline rate 130 bpm. Acceleration: Present. Deceleration: Not present. AMNIOTIC FLUID ASSESSMENT MVP 5.8 cm. ANNMARIE 16.9 cm. Q1 5.4 cm, Q2 4.4 cm, Q3 5.8 cm, Q4 1.4 cm. Procedure Note Nabeel Smith II, MD - 10/23/2017 [place] [facility] Pat. Name:Galindo FARIAS Date:10/23/2017 1:27pm Pat. NO: [id number] :JOVITA ZHOU [facility]Charan Giraldo, [facility] :1990Age:27 INDICATION Single Umbilical Artery (SUA) CODING Diagnosis O35.8XX0: Maternal care for other (suspected) abnormality and damage: Unspecified Fetus. Z3A.36: Weeks Gestation of . Procedures 09805: Limited OB Ultrasound. HISTORY OB History : 2. Para: 1. METHOD Transabdominal ultrasound examination. Adequate visualization. Garcia . Number of fetuses: 1. DATING GA by stated dating 36 w + 0 d MARLEN by stated dating :11/20/2017 Method of dating:Restore dating from previous exam Assigned:Dating performed on 10/16/2017, based on the stated dating Assigned GA36 w + 0 d Assigned MARLEN:11/20/2017 GENERAL EVALUATION Cardiac activity: present. FHR 169 bpm. Presentation: cephalic. NON STRESS TEST Reactive FHR: 2 - reactive, Variability: moderate. Baseline rate 130 bpm. Acceleration: Present. Deceleration: Not present. AMNIOTIC FLUID ASSESSMENT MVP 5.8 cm. ANNMARIE 16.9 cm. Q1 5.4 cm, Q2 4.4 cm, Q3 5.8 cm, Q4 1.4 cm. IMPRESSION Findings Comment Reassuring modified biophysical profile us Jovita Zhou MD US ORDERABLES Final R esult * US OB LTD 1 OR MORE FETUSES (10/16/2017 1:45 PM TOWN CLERK) Anatomical Region Laterality Modality Pelvis Ultrasound 10/16/2017 1:26 PM TOWN CLERK Impressions 10/16/2017 3:14 PM TOWN CLERK IMPRESSION Findings Comment Reassuring modified biophysical profile Narrative 10/16/2017 3:14 PM [facility] Pat. Name: MIRELLA FARIAS Study Date: 10/16/2017 1:26pm Pat. NO: [id number] Referring MD: JOVITA ZHOU Site: [facility] Equity Holder: Tenzin Bettencourt RDMS : 1990 Age: 27 INDICATION Single Umbilical Artery (SUA) CODING Procedures 81790: Limited OB Ultrasound. HISTORY OB History : 2. Para: 1. METHOD Transabdominal ultrasound examination. Adequate visualization. Garcia . Number of fetuses: 1. DATING Method of dating: based on the stated dating GA by stated dating 35 w + 0 d MARLEN by stated dating : 11/20/2017 Assigned: Dating performed on 10/16/2017, based on the stated dating Assigned GA 35 w + 0 d Assigned MARLEN: 11/20/2017 GENERAL EVALUATION Cardiac activity: present. FHR 124 bpm. movements: present. Presentation: cephalic. Placenta: posterior, left. NON STRESS TEST Reactive FHR: 2 - reactive, Variability: moderate. Baseline rate 125 bpm. Acceleration: Present. Deceleration: Not present. AMNIOTIC FLUID ASSESSMENT MVP 5.6 cm. ANNMARIE 17.3 cm. Q1 5.6 cm, Q2 2.7 cm, Q3 4.7 cm, Q4 4.4 cm. Procedure Note Nabeel Smith II, MD - 10/16/2017 [place] [facility] Pat. Name:Galindo FARIAS Date:10/16/2017 1:26pm Pat. NO: [id number] MD:OJVITA ZHOU [facility]Tenzin Bettencourt RDMS :1990Age:27 INDICATION Single Umbilical Artery (SUA) CODING Procedures 46875: Limited OB Ultrasound. HISTORY OB History : 2. Para: 1. METHOD Transabdominal ultrasound examination. Adequate visualization. Garcia . Number of fetuses: 1. DATING Method of dating:based on the stated dating GA by stated dating 35 w + 0 d MARLEN by stated dating :11/20/2017 Assigned:Dating performed on 10/16/2017, based on the stated dating Assigned GA35 w + 0 d Assigned MARLEN:11/20/2017 GENERAL EVALUATION Cardiac activity: present. FHR 124 bpm. movements: present. Presentation: cephalic. Placenta: posterior, left. NON STRESS TEST Reactive FHR: 2 - reactive, Variability: moderate. Baseline rate 125 bpm. Acceleration: Present. Deceleration: Not present. AMNIOTIC FLUID ASSESSMENT MVP 5.6 cm. ANNMARIE 17.3 cm. Q1 5.6 cm, Q2 2.7 cm, Q3 4.7 cm, Q4 4.4 cm. IMPRESSION Findings Comment Reassuring modified biophysical profile us Jovita Zhou MD US ORDERABLES Final R esult * US OB LTD 1 OR MORE FETUSES (10/09/2017 2:43 PM TOWN CLERK) Anatomical Region Laterality Modality Pelvis Ultrasound 10/09/2017 2:31 PM TOWN CLERK Impressions 10/09/2017 3:27 PM TOWN CLERK IMPRESSION Findings Comment Reassuring modified biophysical profile Narrative 10/09/2017 3:27 PM [facility] Pat. Name: MIRELLA FARISA Study Date: 10/09/2017 2:31pm Pat. NO: [id number] Referring MD: JOVITA ZHOU Site: [facility] Equity Holder: Tenzin Bettencuort RDMS : 1990 Age: 26 INDICATION Single Umbilical Artery (SUA) CODING Procedures 98407: Limited OB Ultrasound. HISTORY OB History : 2. Para: 1. METHOD Transabdominal ultrasound examination. Adequate visualization. Garcia . Number of fetuses: 1. DATING Method of dating: based on the stated dating GA by stated dating 34 w + 0 d MARLEN by stated dating : 11/20/2017 Assigned: Dating performed on 10/09/2017, based on the stated dating Assigned GA 34 w + 0 d Assigned MARLEN: 11/20/2017 GENERAL EVALUATION Cardiac activity: present. FHR 141 bpm. movements: present. Presentation: cephalic. Placenta: posterior, left. NON STRESS TEST Reactive FHR: 2 - reactive, Variability: moderate. Baseline rate 125 bpm. Acceleration: Present. Deceleration: Not present. AMNIOTIC FLUID ASSESSMENT MVP 5.2 cm. ANNMARIE 19.2 cm. Q1 5.2 cm, Q2 4.6 cm, Q3 5.1 cm, Q4 4.3 cm. Procedure Note Nabeel Smith II, MD - 10/09/2017 [place] [facility] Pat. Name:Galindo FARIAS Date:10/09/2017 2:31pm Pat. NO: [id number] MD:JOVITA ZHOU [facility]Tenzin Bettencourt RDMS :1990Age:26 INDICATION Single Umbilical Artery (SUA) CODING Procedures 46513: Limited OB Ultrasound. HISTORY OB History : 2. Para: 1. METHOD Transabdominal ultrasound examination. Adequate visualization. Garcia . Number of fetuses: 1. DATING Method of dating:based on the stated dating GA by stated dating 34 w + 0 d MARLEN by stated dating :11/20/2017 Assigned:Dating performed on 10/09/2017, based on the stated dating Assigned GA34 w + 0 d Assigned MARLEN:11/20/2017 GENERAL EVALUATION Cardiac activity: present. FHR 141 bpm. movements: present. Presentation: cephalic. Placenta: posterior, left. NON STRESS TEST Reactive FHR: 2 - reactive, Variability: moderate. Baseline rate 125 bpm. Acceleration: Present. Deceleration: Not present. AMNIOTIC FLUID ASSESSMENT MVP 5.2 cm. ANNMARIE 19.2 cm. Q1 5.2 cm, Q2 4.6 cm, Q3 5.1 cm, Q4 4.3 cm. IMPRESSION Findings Comment Reassuring modified biophysical profile us Jovita Zhou MD ORDERABLES Final R esult documented in this encounter Visit Diagnoses Diagnosis [...] artery documented in this encounter Care Teams Institutional Aide Relationship Specialty Start Date End Date Kranthi Patel MD [address] [place] [address] PCP - General Family Practice 08/09/13 documented as of this encounter
--- NOTE | 2025-05-14 17:23 | W.ED.SKABFB ---
HPI - Skin/Abscess/Foreign Bdy General: Chief complaint: Skin/Abscess/Foreign Body Stated complaint: 2 lumps lt armpit Time Seen by Provider: 05/14/25 17:20 Source: patient Mode of arrival: ambulatory Limitations: no limitations History of Present Illness: Patient is a 34-year-old female presents to ED today with a complaint of 2 painful lumps to her left axillary region that she noticed over the past few days. She has noticed a very scant amount of overlying redness. She has not noticed any drainage. 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 States she has never had similar lesions to her axillary regions or groins before. No fevers or systemic symptoms. MD complaint: abscess/boil Onset (ago): day(s) Tetanus up to date: yes Location: LUE (L axillary region) Severity: moderate Pain Consistency: constant Relieving factors: none Exacerbating factors: other (ROM of L shoulder) Context: none Associated symptoms: Deny chills or fever(s) Treatments prior to arrival: none Related Data Previous Rx's ?Medication ?Instructions ?Recorded Cam boot to right #1 ea 05/13/23 celecoxib 200 mg capsule (Celebrex) 200 mg PO BID #60 caps 10/25/24 Held on 11/16/24. Instructions: Resume on 02/15/25. tizanidine 4 mg tablet 4 mg PO BID PRN muscle spasticity 12/31/24 #30 tabs famotidine 40 mg tablet 40 mg PO DAILY #90 tabs 01/04/25 hydrocortisone 2.5 % topical cream 1 applic NV DAILY PRN hemorrhoids 04/26/25 with perineal applicator #30 grams (Anusol-HC) sulfamethoxazole 800 2 tab PO BID 7 days #28 tabs 05/14/25 mg-trimethoprim 160 mg tablet (Bactrim DS) Allergies Allergy/AdvReac Type Severity Reaction Status Date / Time silicone Allergy Intermediate ALGY-Bliste Verified 05/09/25 13:26 r Corticosteroids Allergy Unknown Unknown Verified 05/09/25 13:26 (Glucocorticoids) phenol Allergy ALGY-Anaphy Verified 05/09/25 13:26 laxis Review of Systems Const: Denies: fever(s), chills, body aches, fatigue or malaise Skin/Breast: Reports: other (lumps to L axilla) Neuro: Denies: numbness in extremities, weakness in extremities or sensory changes PFSH ED PFSH: Family History Grandmother CAD (coronary artery disease) Diabetes Mother Hyperlipidemia Hypertension Grandfather Colon cancer Denies family history of Ovarian cancer Hypercholesteremia Breast cancer Uterine cancer Thyroid disease Stroke Social History Smoking and tobacco/nicotine status: never used tobacco/nicotine Female Reproductive History: Spontaneous abortions: No Physical Exam Const: COMMON NORMALS: no acute distress, patient oriented x3, no limitations, alert and well nourished Extremity: COMMON NORMALS: capillary refill normal, no joint enlargement and no clubbing, cyanosis or edema GENERAL: Yes normal exam except as noted OTHER: induration and tenderness involving L axillary region; scant erythema; no drainage or warmth; no fluctuance; nothing amendable to I&D; these appear deeply seated at this time Neuro: COMMON NORMALS: patient oriented x3, moves all extremities, no focal motor deficits and no sensory deficits noted SENSORIUM/ORIENTATION: Yes alert Skin: NARRATIVE SKIN EXAM: see above Course Vital Signs: Vital signs: Vital Signs Temperature 98.4 F 05/14/25 17:02 Pulse Rate 75 05/14/25 17:02 Respiratory Rate 17 05/14/25 17:02 Blood Pressure 134/82 05/14/25 17:02 Pulse Oximetry 100 05/14/25 17:02 Oxygen Delivery Me thod Room Air 05/14/25 17:02 MDM - Skin/Abscess/Foreign Bdy Medicial Decision Making DDx includes early abscess formation, hidradenitis suppurativa, lymphadenopathy. Will place on antibiotics over the next week. Recommend follow-up with primary care if symptoms are not improving. Return ED precautions discussed. Differential Diagnosis Likely abscess of skin or subcutaneous tissue Medical Records I reviewed the patient's medical records. No radiology studies performed this visit Discharge Plan Discharge Patient Disposition: Home Clinical Impression: Abscess of left axilla Condition: Stable Prescriptions: New sulfamethoxazole-trimethoprim [Bactrim DS] 800-160 mg tablet 2 tab PO BID 7 Days Qty: 28 0RF No Action celecoxib [Celebrex] 200 mg capsule 200 mg PO BID Qty: 60 1RF famotidine 40 mg tablet 40 mg PO DAILY Qty: 90 3RF (DME) Cam boot to right See Rx Instructions .Route .MEDSUPPLY Qty: 1 0RF Rx Instructions: As directed tizanidine 4 mg tablet 4 mg PO BID PRN (Reason: muscle spasticity) Qty: 30 0RF hydrocortisone [Anusol-HC] 2.5 % cream with perineal applicator 1 applic NV DAILY PRN (Reason: hemorrhoids) Qty: 30 1RF Discharge Orders: Discharge ED (Routine); Ordered 05/14/25 Ordered By: Jennifer Santiago Referrals: Audelia Guzman FNP [Primary Care Provider, Nurse Practitioner] Patient Instructions: Patient Portal & Arash Instructions Activity Restrictions/Additional Instructions: As we discussed, abscess did not appear amendable to incision and drainage at this time. We discussed how this could just be an early abscess formation. We will place you on antibiotics. This may still require incision and drainage in several days. We also discussed the possibility that these could be lymph nodes. Also discussed alternative diagnoses such as hidradenitis suppurativa. I would like you to follow-up with primary care next week if symptoms are not improving on antibiotics. Print Language: Micronesian Coding Level of Care Code ED Engineering Operations Leader for Sana Abel
== END 2025-05-14 18:02 | disposition home or self-care (01) ==
PROVIDERS: Emergency Provider Physician Assistant; PCP Nurse Practitioner
DX: L02.412 Cutaneous abscess of left axilla (principal)
CPT/HCPCS: 99283

== ENCOUNTER → 2025-06-21 09:24 | Outpatient (BNVA) | payer BC, MEDICAID, SELFPAY | PROVIDERS: PCP Nurse Practitioner; Visit Provider Nurse Practitioner | DX: J02.9 Acute pharyngitis, unspecified (principal) | CPT/HCPCS: 87880 ==

== ENCOUNTER → 2025-07-19 15:45 | Outpatient (BNVA) | payer BC, MEDICAID, SELFPAY | PROVIDERS: PCP Nurse Practitioner; Visit Provider Obstetrics & Gynecology | DX: N92.0 Excessive and frequent menstruation with regular cycle (principal); N83.01 Follicular cyst of right ovary; N83.02 Follicular cyst of left ovary; R93.89 Abnormal findings on diagnostic imaging of other specified body structures | CPT/HCPCS: 76830 ==